=== PATIENT | male | born 1970 | race Caucasian/White ===

== ENCOUNTER 2018-04-28 17:16 | Emergency (ER) | payer BC ==
[2018-04-28] MEDS ORDERED: NS 0.9% 1000 ML* 2,000 ML IV ONE (17:55)
[2018-04-28] MEDS ORDERED: Metoclopramide IV* 5 MG/ML 2 ML VIAL IV SLOW PU ONE (17:56)
--- NOTE | 2018-04-28 18:22 | RAD ---
INDICATION: Syncope. COMPARISON: Comparison is made with prior chest x-ray study from August 26, 2016. TECHNIQUE: 2 portable films of the chest were obtained. FINDINGS: Cardiac and mediastinal contours appear to be within normal limits. The lungs are clear. No pleural effusion is seen. 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 IMPRESSION: NO EVIDENCE FOR ACUTE DISEASE.
[2018-04-28 18:32] LABS: ABS Basophils 0 10^3/ul (0-0.2); ABS Eosinophils 0.1 10^3/ul (0-0.6); ABS Monocytes 0.7 10^3/ul (0-0.8); ABS Neutrophils 6.6 10^3/ul (1.5-7.7); ABS Nucleated RBC 0 10^3/ul; Eosinophil % 1.5 % (0-6); Hematocrit 36 % (42-52); Hemoglobin 12.4 g/dl (14.0-18.0); Lymphocyte % 11.4 % (25-47); Mean Corpuscular HGB Conc 35 g/dl (31-36); Mean Corpuscular Hemoglobin 29 pg (27-31); Mean Corpuscular Volume 83 fL (80-94); Mean Platelet Volume 7.9 um3 (7.4-10.4); Nucleated Red Blood Cells % 0; Platelet Count 167 10^3/ul (150-450); Red Blood Count 4.32 10^6/ul (4.00-5.40); Red Cell Distribution Width 15 % (10.5-15); White Blood Count 8.4 10^3/ul (3.5-10.8)
--- NOTE | 2018-04-28 18:43 | ED ---
Syncope/Near Syncope - HPI Summary HPI Summary: This is michel Andujar documenting for attending Arron Coy MD. 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 reports that he has arthritis and woke up from a nap yesterday with R knee swelling. The patient was at infection control office to get his R knee drained during onset. Hx of syncope with needles, but "not like this". He reports no pain after the procedure. reports right before the episode, he had difficulty breathing, his eyes rolled back in his head and then he started snoring and was unresponsive for a few minutes. He then stopped breathing and the nurse said to begin CPR. The slapped and yelled the patient until he woke up. CPR was not done. reports he has had no previous syncopal episodes. He has had hx of anxiety attacks but nothing were like this episode and vasovagal episodes. The patient reports feeling dizzy and light-headed before the episode and said he havent felt good all day. Currently, he reports nausea, he cant get a deep breath, it feels funny when he breathes in, decreased appetite today secondary to nausea, and a migraine (not unusual) that has worsened since onset earlier today but is better currently. The patient rates the pain 0/10 in severity. Symptoms aggravated by nothing. Symptoms alleviated by nothing. Patient reports nausea currently, and profuse diaphoresis. Denies hx of CAD or blood clots. Denies FHx of blood clots. - History Of Current Complaint Chief Complaint: EDSyncope Time Seen by Provider: 04/28/18 17:31 Hx Obtained From: Patient Onset/Duration: Sudden Onset - FUGITIVE DETECTIVE, Lasting Minutes Context: Witnessed Activity At Onset: Other - immediately after a procedure Associated Head Trauma: No Aggravating Factor(s): Other - unknown, onset was during a procedure to drain his R knee Alleviating Factor(s): Spontaneous Resolution Associated Signs And Symptoms: Decreased Oral Intake - secondary to nausea today , Dizzy - before the episode, Lightheadedness - before the episode, Other - nausea currently; difficulties breathing currently: can't "get a deep breath", it "feels funny when he breathes in", migraine that is not unusual but has worsened since onset earlier today, but is better currently Related History: Similar Episode/Dx as - History of syncope wiht needles, but "not like this" - Allergies/Home Medications Allergies/Adverse Reactions: Allergies Allergy/AdvReac Type Severity Reaction Status Date / Time MS Acetaminophen Allergy Severe See Comment Verified 04/28/18 17:41 [From Tylenol] MS Aspirin [Aspirin] Allergy Severe Swelling Verified 04/28/18 17:41 Of Face,Lips,& Throat ibuprofen AdvReac GI Upset Verified 04/28/18 17:41 migraine medication Allergy Severe See Comment Uncoded 04/28/18 17:41 PMH/Surg Hx/FS Hx/Imm Hx Endocrine/Hematology History: Denies: Hx Diabetes, Hx Thyroid Disease Cardiovascular History: Reports: Hx Hypertension Denies: Hx Pacemaker/ICD Respiratory History: Denies: Hx Asthma, Hx Chronic Obstructive Pulmonary Disease (COPD) GI History: Denies: Hx Ulcer History: Denies: Hx Dialysis, Hx Renal Disease Sensory History: Denies: Hx Hearing Aid Neurological History: Reports: Hx CVA, Hx Migraine Psychiatric History: Reports: Hx Anxiety Denies: Hx Panic Disorder - Surgical History Surgery Procedure, Year, and Place: APPENDECTOMY AT AGE 5. RIGHT SHOULDER AT AGE 14 AND 40. RIGHT KNEE AT AGE 23. LEFT WRIST 2005. LEFT KNEE SCOPE 2010. LEFT ANKLE 2006. VASECTOMY 2006. 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 Infectious Disease History: No Infectious Disease History: Denies: Hx Hepatitis, Hx Human Immunodeficiency Virus (HIV), Traveled Outside the [place] in Last 30 Days - Family History Known Family History: Negative: Cardiac Disease, Hypertension, Diabetes - Social History Alcohol Use: None Substance Use Type: Reports: None Hx Tobacco Use: No Smoking Status (MU): Never Smoked Tobacco Review of Systems Positive: Skin Diaphoresis - profuse. Negative: Fever, Chills Negative: Erythema Negative: Sore Throat Negative: Chest Pain Positive: Other - difficulty breathing before the episode; currently he cant get a deep breath, it feels funny when he breathes in, . Negative: Shortness Of Breath, Cough Positive: Nausea - currently, Other - decreased appetite secondary to nausea. Negative: Abdominal Pain, Vomiting Negative: dysuria, hematuria Positive: Other - hx of arthritis, R knee swelling occurred yesterday that was supposed to be drained today. Negative: Myalgia, Edema Negative: Rash Neurological: Other - dizziness Positive: Headache - migraine had worsened since onset earlier today but is currently better, Syncope - unresponsive for "a few minutes" All Other Systems Reviewed And Are Negative: Yes Physical Exam - Summary Physical Exam Summary: Constitutional: Well-developed, Well-nourished, Alert. (-) Distressed Skin: Warm, diaphoretic HENT: Tired of hearing; Atraumatic Eyes: Conjunctiva normal Neck: Musculoskeletal ROM normal neck. (-) JVD, (-) Stridor, (-) Tracheal deviation Cardio: Rhythm regular, rate normal, Heart sounds normal; Intact distal pulses; The pedal pulses are 2+ and symmetric. Radial pulses are 2+ and symmetric. (-) Murmur Pulmonary/Chest wall: Effort normal. (-) Respiratory distress, (-) Wheezes, (-) Rales Abd: Soft, (-), epigastric tenderness, (-) Distension, (-) Guarding, (-) Rebound Musculoskeletal: (-) Edema Lymph: (-) Cervical adenopathy Neuro: Alert, Oriented x3 Psych: Mood and affect Normal Triage Information Reviewed: Yes Vital Signs On Initial Exam: Initial Vitals Pulse Pulse Ox 71 89 04/28/18 17:23 04/28/18 17:23 Vital Signs Reviewed: Yes Diagnostics - Vital Signs Vital Signs Temp Pulse Resp BP Pulse Ox 04/28/18 17:32 96.4 F 80 3 125/72 75 04/28/18 17:28 82 117/74 99 04/28/18 17:23 71 89 - Laboratory Lab Results: Lab Results 04/28/18 Range/Units 18:21 WBC 8.4 (3.5-10.8) 10^3/ul RBC 4.32 (4.00-5.40) 10^6/ul Hgb 12.4 L (14.0-18.0) g/dl Hct 36 L (42-52) % MCV 83 (80-94) fL MCH 29 (27-31) pg MCHC 35 (31-36) g/dl RDW 15 (10.5-15) % Plt Count 167 (150-450) 10^3/ul MPV 7.9 (7.4-10.4) um3 Neut % (Auto) 78.3 (38-83) % Lymph % (Auto) 11.4 L (25-47) % [place] % (Auto) 8.4 H (0-7) % Eos % (Auto) 1.5 (0-6) % Baso % (Auto) 0.4 (0-2) % Absolute Neuts (auto) 6.6 (1.5-7.7) 10^3/ul Absolute Lymphs (auto) 1.0 (1.0-4.8) 10^3/ul Absolute Monos (auto) 0.7 (0-0.8) 10^3/ul Absolute Eos (auto) 0.1 (0-0.6) 10^3/ul Absolute Basos (auto) 0 (0-0.2) 10^3/ul Absolute Nucleated RBC 0 10^3/ul Nucleated RBC % 0 ESR Pending Result Diagrams: 04/28/18 18:21 04/28/18 18:21 Lab Statement: Any lab studies that have been ordered have been reviewed, and results considered in the medical decision making process. - Radiology Chest X-Ray Radiology Interpretation Completed By: Radiologist - NO EVIDENCE FOR ACUTE DISEASE. ED physician has reviewed this radiology report - EKG No standard instances Cardiac Rate: NL - 73 bpm EKG Rhythm: Sinus Rhythm EKG Interpretation: no STEMI Re-Evaluation - Re-Evaluation First Eval Re-Evaluation Time: 18:57 Change: Improved - Right knee is mildly warm. 2 liters of fluid pending. He feels better. Plan for re-eval by Dr. Taylor Course/Dx Assessment/Plan: Hx of vasovagal syncope. Had a syncopal episode following a painful procedure. Labs are unremarkable. Has not eaten today. Is receiving IV fluids. Likely another vasovagal syncope. Patient is signed out to Dr. Taylor awaiting 2 liters of fluid pending. Plan for re-eval, likely discharge - Diagnoses Differential Diagnosis/HQI/PQRI: Positive: Vasovagal Episode Provider Diagnoses: Syncope Discharge - Sign-Out/Discharge Documenting (check all that apply): Sign-Out Patient Signing out patient TO: Ortiz Taylor - Discharge Plan Condition: Stable Disposition: HOME Patient Education Materials: Syncope (ED) Referrals: Jessee Reyna MD [Primary Care Provider] - (Follow up with your rn diabetes for your knee and your primary care physician in 1-3 days.) Additional Instructions: RETURN TO THE EMERGENCY DEPARTMENT FOR CHANGING OR WORSENING SYMPTOMS.
[2018-04-28 18:50] LABS: EGFR Non-African American 71.9 (>60)
[2018-04-28 20:09] LABS: Urine Appearance Clear; Urine Blood Negative (Negative); Urine Color Yellow; Urine Ketones Negative (Negative); Urine Protein Negative (Negative); Urine Specific Gravity 1.012 (1.010-1.030); Urine Urobilinogen Negative (Negative)
--- NOTE | 2018-04-28 21:42 | ED ---
Progress - Progress Note Progress Note: This patient was signed out from Dr. Coy to Dr. Taylor awaiting re-eval. Re-eval was done at 21:39. 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 Re-Evaluation - Re-Evaluation First Eval Re-Evaluation Time: 18:57 Change: Improved - Right knee is mildly warm. 2 liters of fluid pending. He feels better. Plan for re-eval by Dr. Taylor Course/Dx - Diagnoses Provider Diagnoses: Syncope Discharge - Sign-Out/Discharge Documenting (check all that apply): Patient Departure - Discharge Plan Condition: Stable Disposition: HOME Patient Education Materials: Syncope (ED) Referrals: Jessee Reyna MD [Primary Care Provider] - (Follow up with your sales engineer account manager for your knee and your primary care physician in 1-3 days.) Additional Instructions: RETURN TO THE EMERGENCY DEPARTMENT FOR CHANGING OR WORSENING SYMPTOMS.
[2018-04-28 21:54] VITALS: BP 125/78
== END 2018-04-28 22:02 | disposition home or self-care (01) ==
LOC: ED 17:16
DX: R55 Syncope and collapse (principal); Z86.73 Personal history of transient ischemic attack (TIA), and cerebral infarction without residual deficits; Z88.3 Allergy status to other anti-infective agents
CPT/HCPCS: 36415; 71045; 80053; 81003; 83605; 83735; 84443; 84484; 85025; 85652; 86141; 93005; 96374; 99283; J2765

== ENCOUNTER 2018-05-02 14:49 | Inpatient (IN) | payer BC ==
--- OUTSIDE RECORDS SUMMARY | 2018-05-02 15:00 | XMS REPORT ---
:1970 External Reference #:[id number] Author Organization [facility] Address [address] [place] [address] [place] [address] Phone [phone] Care Team Providers Name Role Phone Bradford Hsu MD Care Team Information Final Application Reviewer Unavailable Jessee Reyna MD Primary Care Physician Unavailable Payers Type Date Identification Numbers Payment Provider Subscriber Commercial Policy Number: [id number] [employer]ets Karon Lorenzana PayID: [id number] [address] [address] [place] [address] Problems Date Description Provider Status Onset: 04/29/2018 Cellulitis of right lower limb Cait Mcghee M.D. Active Onset: 04/29/2018 Localized, primary osteoarthritis Cait Mcghee M.D. Active Onset: 04/29/2018 Psoriasis with arthropathy Cait Mcghee M.D. 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 Doxycycline 04/29/ Active Capsules 100mg 45cap 1 by mouth Hyclate 2017 s twice a day, prakash Javed M.D. Methotrexate and Taltz Meloxicam 04/29/ Active Tablets 15mg 30tab 1 by mouth M25.561 Cait 2018 s every day Catie Mcghee Hydrocodone 04/29/ Active Tablets 5-300mg 60tab 1-2 tablets M25.561 Cait Bitartrate/Yuri 2018 s q12 hours by rahul Mcghee mouth as Catie needed pain Potassium 04/29/ Active Tablets ER 20Meq 6tabs 1 tab po bid E87.6 Cait Chloride ER 2018 x 3 days Taz, recheck Catie potassium wtih pcp in 1 week Taltz 03/25/ Active Solution 80mg/ml 8unit 160 mg (two 2017 Auto-Injec s 80 mg Tello, t injections) MGenesisDGenesis at week 0, followed by 80 mg at weeks 2, 4, 6, 8, 10, and 12, then 80 mg every 4 weeks. Methotrexate 03/04/ Active Tablets 2.5mg 30tab take 5 R70.0 2017 s capsules/tabl Tello, ets by mouth M.DGenesis once weekly Folic Acid 03/04/ Active Tablets 1mg 90tab take one R70.0 2017 s capsule/table Tello, t daily by MHumberto mouth Celebrex 12/17/ Active Capsules 200mg 90cap take one M06.4 2016 s capsule/table Tello, t daily by Catie mouth as needed for pain Nitro-bid 12/17/ Active Ointment 2% 30gm apply small I73.00 2016 amount to tatyana Javed of Catie digits as needed for attack of raynaud's D3-1000 12/17/ Active Tablets 1000Unit 90tab take one M06.4 2016 s capsule/table Tello, t daily by MHumberto mouth Venlafaxine / Active Caps ER 150mg 1 by mouth Unknown HCL ER 0000 24HR every day Pantoprazole / Active Tablets DR 40mg 1 by mouth Unknown Sodium 0000 every day Losartan / Active Tablets 100mg 1 by mouth Unknown Potassium 0000 every day Amlodipine 00/ Active Tablets 5mg 1 by mouth Unknown Besylate 0000 every day Trazodone HCL / Active Tablets 50mg 1 tablet at Unknown 0000 bedtime as needed Alprazolam / Active Tablets 0.5mg Unknown 0000 Rizatriptan / Active Tablets 10mg prn Unknown Benzoate 0000 Dispers Aspir-81 / Active Tablets DR 81mg 1 by mouth Unknown 0000 every day Cephalexin 04/29/ Hx Tablets 500mg 30tab 1 by mouth L03.115 Cait 2018 - s four times a Taz, M.D. 2017 Clopidogrel / Hx Tablets 75mg 1 by mouth Unknown Bisulfate 0000 - every day 2017 Immunizations CPT Code Status Date Vaccine Reaction Lot # 47069 Given 03/25/2018 Pneumococcal Conjugate no immediate reaction [id number] Vaccine 13 Valent For noted Intramuscular Use Vital Signs Date Vital Result Comment 05/01/2018 Height 70 inches 5'10" Heart Rate 87 /min BP Systolic 130 mmHg BP Diastolic 86 mmHg Respiratory Rate 20 /min Body Temperature 98.2 F Pain Level 3 04/29/2018 Height 70 inches 5'10" Weight 235.00 lb Heart Rate 88 /min BP Systolic 126 mmHg BP Diastolic 84 mmHg BMI (Body Mass Index) 33.7 kg/m2 04/28/2018 Height 70 inches 5'10" Heart Rate 97 /min BP Systolic Sitting 124 mmHg BP Diastolic Sitting 73 mmHg Respiratory Rate 14 /min Body Temperature 99.0 F Pain Level 8 03/25/2018 Height 70 inches 5'10" Weight 239.12 lb Heart Rate 73 /min BP Systolic Sitting 130 mmHg BP Diastolic Sitting 82 mmHg Respiratory Rate 14 /min Pain Level 5 BMI (Body Mass Index) 34.3 kg/m2 03/04/2018 Height 70 inches 5'10" Weight 239.00 lb Heart Rate 84 /min BP Systolic Sitting 120 mmHg BP Diastolic Sitting 80 mmHg Respiratory Rate 14 /min Body Temperature 97.6 F Pain Level 5 BMI (Body Mass Index) 34.3 kg/m2 02/20/2017 Height 70 inches 5'10" Weight 237.25 lb Heart Rate 80 /min BP Systolic Sitting 118 mmHg BP Diastolic Sitting 78 mmHg Respiratory Rate 14 /min Pain Level 3 BMI (Body Mass Index) 34.0 kg/m2 12/17/2016 Height 70 inches 5'10" Weight 238.00 lb Heart Rate 89 /min BP Systolic Sitting 101 mmHg BP Diastolic Sitting 73 mmHg Respiratory Rate 14 /min Body Temperature 97.1 F Pain Level 4 BMI (Body Mass Index) 34.1 kg/m2 11/19/2016 Height 70 inches 5'10" Weight 242.00 lb Heart Rate 68 /min BP Systolic Sitting 122 mmHg BP Diastolic Sitting 80 mmHg Respiratory Rate 14 /min Body Temperature 97.4 F Pain Level 3 BMI (Body Mass Index) 34.7 kg/m2 Results Test Date Test Result H/L Range Note Laboratory test finding 04/29/2018 Lyme Disease Serology <pending> Uric Acid 5.9 mg/dL 4.4-7.6 Quantiferon Gold TB 03/25/2018 QuantiFERON-Tb Gold Plus Negative Negative 1 TB1 Ag minus Nil Result 0 IU/mL TB2 Ag minus Nil Result 0 IU/mL TB Mitogen minus Nil Result 9.05 IU/mL TB Nil Result 0.03 IU/mL 2 Laboratory test finding 03/25/2018 C Reactive Protein 2.93 mg/L <8.01 3 Comp Metabolic Panel 03/25/2018 Sodium 138 mmol/L 135-145 Potassium 4.2 mmol/L 3.5-5.0 Chloride 104 mmol/L 101-111 Co2 Carbon Dioxide 29 mmol/L 22-32 Anion Gap 5 mmol/L 2-11 Glucose 103 mg/dL High 70-100 Blood Urea Nitrogen 21 mg/dL 6-24 Creatinine 1.11 mg/dL 0.67-1.17 BUN/Creatinine Ratio 18.9 8-20 Calcium 9.2 mg/dL 8.6-10.3 Total Protein 6.7 g/dL 6.4-8.9 Albumin 4.3 g/dL 3.2-5.2 Globulin 2.4 g/dL 2-4 Albumin/Globulin Ratio 1.8 1-3 Total Bilirubin 0.40 mg/dL 0.2-1.0 Alkaline Phosphatase 76 U/L 34-104 Alt 16 U/L 7-52 Ast 15 U/L 13-39 Egfr Non- 70.4 >60 Egfr 85.2 >60 4 Laboratory test finding 03/25/2018 Erythrocyte Sed Rate 7 mm/Hr 0-14 CBC Auto Diff 03/25/2018 White Blood Count 7.0 10^3/uL 3.5-10.8 Red Blood Count 4.95 10^6/uL 4.00-5.40 Hemoglobin 14.4 g/dL 14.0-18.0 Hematocrit 41 % Low 42-52 Mean Corpuscular Volume 83 fL 80-94 Mean Corpuscular Hemoglobin 29 pg 27-31 Mean Corpuscular HGB Conc 35 g/dL 31-36 Red Cell Distribution Width 14 % 10.5-15 Platelet Count 212 10^3/uL 150-450 Mean Platelet Volume 7.5 um3 7.4-10.4 Abs Neutrophils 4.3 10^3/uL 1.5-7.7 Abs Lymphocytes 1.7 10^3/uL 1.0-4.8 Abs Monocytes 0.6 10^3/uL 0-0.8 Abs Eosinophils 0.2 10^3/uL 0-0.6 Abs Basophils 0.1 10^3/uL 0-0.2 Abs Nucleated RBC 0 10^3/uL Granulocyte % 62.4 % 38-83 Lymphocyte % 25.0 % 25-47 Monocyte % 8.3 % High 0-7 Eosinophil % 3.3 % 0-6 Basophil % 1.0 % 0-2 Nucleated Red Blood Cells % 0 Laboratory test finding 03/04/2018 Erythrocyte Sed Rate 10 mm/Hr 0-14 5 C Reactive Protein 6.40 mg/L High < 5.00 6 Vitamin D, 1,25 Dihydroxy 52 pg/mL 18-64 7 Comp Metabolic Panel 03/04/2018 Sodium 138 mmol/L Low 139-145 Potassium 3.9 mmol/L 3.5-5.0 Chloride 104 mmol/L 101-111 Co2 Carbon Dioxide 27 mmol/L 22-32 Anion Gap 7 mmol/L 2-11 Glucose 130 mg/dL High 70-100 Blood Urea Nitrogen 22 mg/dL 6-24 Creatinine 1.01 mg/dL 0.67-1.17 BUN/Creatinine Ratio 21.8 High 8-20 Calcium 9.2 mg/dL 8.6-10.3 Total Protein 6.3 g/dL Low 6.4-8.9 Albumin 4.0 g/dL 3.2-5.2 Globulin 2.3 g/dL 2-4 Albumin/Globulin Ratio 1.7 1-3 Total Bilirubin 0.40 mg/dL 0.2-1.0 Alkaline Phosphatase 96 U/L 34-104 Alt 17 U/L 7-52 Ast 18 U/L 13-39 Egfr Non- 78.5 >60 Egfr 101.0 >60 8 CBC Auto Diff 03/04/2018 White Blood Count 5.6 10^3/uL 3.5-10.8 Red Blood Count 5.00 10^6/uL 4.0-5.4 Hemoglobin 13.9 g/dL Low 14.0-18.0 Hematocrit 41 % Low 42-52 Mean Corpuscular Volume 83 fL 80-94 Mean Corpuscular Hemoglobin 28 pg 27-31 Mean Corpuscular HGB Conc 34 g/dL 31-36 Red Cell Distribution Width 14 % 10.5-15 Platelet Count 225 10^3/uL 150-450 Mean Platelet Volume 8.2 um3 7.4-10.4 Abs Neutrophils 3.6 10^3/uL 1.5-7.7 Abs Lymphocytes 1.4 10^3/uL 1.0-4.8 Abs Monocytes 0.3 10^3/uL 0-0.8 Abs Eosinophils 0.2 10^3/uL 0-0.6 Abs Basophils 0 10^3/uL 0-0.2 Abs Nucleated RBC 0 10^3/uL Granulocyte % 64.5 % 38-83 Lymphocyte % 25.4 % 25-47 Monocyte % 5.8 % 0-7 Eosinophil % 3.7 % 0-6 Basophil % 0.6 % 0-2 Nucleated Red Blood Cells % 0.1 Comp Metabolic Panel 03/12/2017 Sodium 136 mmol/L 133-145 Potassium 4.7 mmol/L 3.5-5.0 Chloride 101 mmol/L 101-111 Co2 Carbon Dioxide 29 mmol/L 22-32 Anion Gap 6 mmol/L 2-11 Glucose 80 mg/dL 70-100 Blood Urea Nitrogen 17 mg/dL 6-24 Creatinine 1.15 mg/dL 0.67-1.17 BUN/Creatinine Ratio 14.8 8-20 Calcium 9.9 mg/dL 8.6-10.3 Total Protein 7.0 g/dL 6.4-8.9 Albumin 4.5 g/dL 3.2-5.2 Globulin 2.5 g/dL 2-4 Albumin/Globulin Ratio 1.8 1-3 Total Bilirubin 0.60 mg/dL 0.2-1.0 Alkaline Phosphatase 80 U/L 34-104 Alt 24 U/L 7-52 Ast 20 U/L 13-39 Egfr Non- 67.9 >60 Egfr 87.3 >60 9 Laboratory test finding 03/12/2017 Erythrocyte Sed Rate 12 mm/Hr 0-14 10 C Reactive Protein 3.36 mg/L < 5.00 11 Vitamin B12 And Folate Serum 03/12/2017 Vitamin B12 533 pg/mL 180-914 12 Folic Acid (Folate) 7.97 ng/mL >3.99 13 Iron & Iron Binding Capacity 03/12/2017 Iron 97 g/dL 50-212 Unsaturated Iron Binding 292 g/dL Total Iron Binding Capacity 389 g/dL 250-450 % Iron Saturation 25 % 15-55 CBC Auto Diff 03/12/2017 White Blood Count 5.0 10^3/uL 3.5-10.8 Red Blood Count 5.34 10^6/uL 4.0-5.4 Hemoglobin 14.1 g/dL 14.0-18.0 Hematocrit 43 % 42-52 Mean Corpuscular Volume 81 fL 80-94 Mean Corpuscular Hemoglobin 26 pg Low 27-31 Mean Corpuscular HGB Conc 33 g/dL 31-36 Red Cell Distribution Width 15 % 10.5-15 Platelet Count 213 10^3/uL 150-450 Mean Platelet Volume 8 um3 7.4-10.4 Abs Neutrophils 3.1 10^3/uL 1.5-7.7 Abs Lymphocytes 1.4 10^3/uL 1.0-4.8 Abs Monocytes 0.4 10^3/uL 0-0.8 Abs Eosinophils 0.1 10^3/uL 0-0.6 Abs Basophils 0 10^3/uL 0-0.2 Abs Nucleated RBC 0.01 10^3/uL Granulocyte % 61.5 % 38-83 Lymphocyte % 27.2 % 25-47 Monocyte % 8.9 % 1-9 Eosinophil % 1.8 % 0-6 Basophil % 0.6 % 0-2 Nucleated Red Blood Cells % 0.1 Connective Tissue Panel 11/19/2016 Anti-Nuclear Antibody 0.5 U 14 Cyclic Citrullinated Peptide <15.6 U 15 Interpretation See Comment 16 Laboratory test finding 11/19/2016 Rheumatoid Factor <15 IU/mL <15 17 Erythrocyte Sed Rate 23 mm/Hr High 0-14 18 C Reactive Protein 14.86 mg/L High < 5.00 19 Hla B27 11/19/2016 Hla B27 Negative 20 Hla B27 Interp See Comment 21 Laboratory test finding 11/19/2016 Lyme Disease Serology Negative Negative 22 Anca AB Ser If 11/19/2016 C-Anca Negative Negative P-Anca Negative Negative 23 Laboratory test finding 11/19/2016 Creatine Kinase(CK) 132 U/L 10-223 24 Comp Metabolic Panel 11/19/2016 Sodium 139 mmol/L 133-145 Potassium 4.3 mmol/L 3.5-5.0 Chloride 103 mmol/L 101-111 Co2 Carbon Dioxide 30 mmol/L 22-32 Anion Gap 6 mmol/L 2-11 Glucose 99 mg/dL 70-100 Blood Urea Nitrogen 21 mg/dL 6-24 Creatinine 1.08 mg/dL 0.67-1.17 BUN/Creatinine Ratio 19.4 8-20 Calcium 9.4 mg/dL 8.6-10.3 Total Protein 7.0 g/dL 6.4-8.9 Albumin 4.2 g/dL 3.2-5.2 Globulin 2.8 g/dL 2-4 Albumin/Globulin Ratio 1.5 1-3 Total Bilirubin 0.40 mg/dL 0.2-1.0 Alkaline Phosphatase 84 U/L 34-104 Alt 18 U/L 7-52 Ast 14 U/L 13-39 Egfr Non- 73.3 >60 Egfr 94.3 >60 25 CBC Auto Diff 11/19/2016 White Blood Count 5.5 10^3/uL 3.5-10.8 Red Blood Count 5.12 10^6/uL 4.0-5.4 Hemoglobin 13.4 g/dL Low 14.0-18.0 Hematocrit 41 % Low 42-52 Mean Corpuscular Volume 79 fL Low 80-94 Mean Corpuscular Hemoglobin 26 pg Low 27-31 Mean Corpuscular HGB Conc 33 g/dL 31-36 Red Cell Distribution Width 15 % 10.5-15 Platelet Count 226 10^3/uL 150-450 Mean Platelet Volume 8 um3 7.4-10.4 Abs Neutrophils 4.0 10^3/uL 1.5-7.7 Abs Lymphocytes 1.1 10^3/uL 1.0-4.8 Abs Monocytes 0.3 10^3/uL 0-0.8 Abs Eosinophils 0.1 10^3/uL 0-0.6 Abs Basophils 0 10^3/uL 0-0.2 Abs Nucleated RBC 0 10^3/uL Granulocyte % 72.7 % 38-83 Lymphocyte % 19.8 % Low 25-47 Monocyte % 5.3 % 1-9 Eosinophil % 1.8 % 0-6 Basophil % 0.4 % 0-2 Nucleated Red Blood Cells % 0.1 Laboratory test finding 11/19/2016 TSH (Thyroid Stim 1.00 mcIU/mL 0.34- 5.60 26 Horm) Angiotensin Converting Enzyme 27 U/L 8 - 53 27 Vitamin B12 And Folate Serum 11/19/2016 Vitamin B12 531 pg/mL 180-914 28 Folic Acid (Folate) 5.25 ng/mL >3.99 29 Vitamin D 1,25 And Vitamin 11/19/2016 Vitamin D Total 25(Oh) 29.6 ng/mL Low 30-50 30 D,2 Vitamin D, 1,25 Dihydroxy 56 pg/mL 18-64 31 1 No interferon-gamma response to M. tuberculosis antigens was detected. Infection with M. tuberculosis is unlikely. A single negative result does not exclude infection with M. tuberculosis. In patients at high risk for M.tuberculosis infection, a second test should be considered in accordance with the 2017 ATS/IDSA/CDC Clinical Practice Guidelines for Diagnosis of Tuberculosis in Adults and Children [Lewinsohn DM et. al. Clin. Infect. Dis. 2017;64(2):111-115]. 2 Test Performed by: [facility] [address] [place] [id number] 3 Please check this week 4 Because ethnic data is not always readily available, this report includes an eGFR for both -Americans and non- Americans. The National Kidney Disease Education Program (NKDEP) does not endorse the use of the MDRD equation for patients that are not between the ages of 18 and 70, are , have extremes of body size, muscle mass, or nutritional status, or are non- or non-. According to the National Kidney Foundation, irrespective of diagnosis, the stage of the disease is based on the level of kidney function: Stage Description GFR(mL/min/1.73 m(2)) 1 Kidney damage with normal or decreased GFR 90 2 Kidney damage with mild decrease in GFR 60-89 3 Moderate decrease in GFR 30-59 4 Severe decrease in GFR 15-29 5 Kidney failure <15 (or dialysis) 5 Please check today 6 Acute inflammation: >10.00 7 ADDITIONAL INFORMATION This test was developed and its performance characteristics determined by [facility] in a manner consistent with CLIA requirements. This test has not been cleared or approved by the U.S. Food and Drug Administration. Test Performed by: [facility] [address] [place] [address] 8 Because ethnic data is not always readily available, this report includes an eGFR for both -Americans and non- Americans. The National Kidney Disease Education Program (NKDEP) does not endorse the use of the MDRD equation for patients that are not between the ages of 18 and 70, are , have extremes of body size, muscle mass, or nutritional status, or are non- or non-. According to the National Kidney Foundation, irrespective of diagnosis, the stage of the disease is based on the level of kidney function: Stage Description GFR(mL/min/1.73 m(2)) 1 Kidney damage with normal or decreased GFR 90 2 Kidney damage with mild decrease in GFR 60-89 3 Moderate decrease in GFR 30-59 4 Severe decrease in GFR 15-29 5 Kidney failure <15 (or dialysis) 9 Because ethnic data is not always readily available, this report includes an eGFR for both -Americans and non- Americans. The National Kidney Disease Education Program (NKDEP) does not endorse the use of the MDRD equation for patients that are not between the ages of 18 and 70, are , have extremes of body size, muscle mass, or nutritional status, or are non- or non-. According to the National Kidney Foundation, irrespective of diagnosis, the stage of the disease is based on the level of kidney function: Stage Description GFR(mL/min/1.73 m(2)) 1 Kidney damage with normal or decreased GFR 90 2 Kidney damage with mild decrease in GFR 60-89 3 Moderate decrease in GFR 30-59 4 Severe decrease in GFR 15-29 5 Kidney failure <15 (or dialysis) 10 Please check in 1 or 2 weeks or sooner if needed 11 Acute inflammation: >10.00 12 Normal Range 180 to 914 Indeterminate Range 145 to 180 Deficient Range <145 13 Please check in 1 or 2 weeks or sooner if needed 14 REFERENCE VALUE <=1.0 (Negative) 15 REFERENCE VALUE <20.0 (Negative) 16 Tests for antibodies to dsDNA and RHIANNON antigens are not performed automatically unless the SAEED result is > or= 3.0 U. Studies performed at [facility] indicate that positive SAEED results <3.0 U are rarely accompanied by positive second order tests. Test Performed by: [place] [address] [place]: Alfredito Gonzales II, M.D., Ph.D. 17 Test Performed by: [place] [address] [place]: Alfredito Gonzales II, M.D., Ph.D. 18 Please check today 19 Acute inflammation: >10.00 20 REFERENCE VALUE Not Applicable 21 RESULT: HLA-B27 antigen was not detected. ADDITIONAL INFORMATION Method: Flow Cytometry Performing Laboratory CLIA# [id number] Test Performed by: [place] [address] [place]: Alfredito Gonzales II, M.D., Ph.D. 22 Serologic response to B. burgdorferi infection is not detected, but cannot rule out early infection during which low or undetectable antibody levels to B. burgdorferi may be present. If clinically indicated, a new serum specimen should be submitted in 7-14 days. Test Performed by: [facility] [address] [place] [address] Ste[place]man: Alfredito Gonzales II, M.D., Ph.D. 23 Negative for cANCA and pANCA patterns by immunofluorescence. ADDITIONAL INFORMATION This test was developed and its performance characteristics determined by [facility] in a manner consistent with CLIA requirements. This test has not been cleared or approved by the U.S. Food and Drug Administration. Test Performed by: [facility] [place] [address] Steersman: Alfredito Gonzales II, M.D., Ph.D. 24 Please check today 25 Because ethnic data is not always readily available, this report includes an eGFR for both -Americans and non- Americans. The National Kidney Disease Education Program (NKDEP) does not endorse the use of the MDRD equation for patients that are not between the ages of 18 and 70, are , have extremes of body size, muscle mass, or nutritional status, or are non- or non-. According to the National Kidney Foundation, irrespective of diagnosis, the stage of the disease is based on the level of kidney function: Stage Description GFR(mL/min/1.73 m(2)) 1 Kidney damage with normal or decreased GFR 90 2 Kidney damage with mild decrease in GFR 60-89 3 Moderate decrease in GFR 30-59 4 Severe decrease in GFR 15-29 5 Kidney failure <15 (or dialysis) 26 Please check today 27 Test Performed by: [facility] [place] [address] [place]: Alfredito Gonzales II, M.D., Ph.D. 28 Normal Range 180 to 914 Indeterminate Range 145 to 180 Deficient Range <145 29 Please check today 30 Please check today 31 ADDITIONAL INFORMATION This test was developed and its performance characteristics determined by [facility] in a manner consistent with CLIA requirements. This test has not been cleared or approved by the U.S. Food and Drug Administration. Test Performed by: [facility] [place] [address] [place]: Alfredito Gonzales II, M.D., Ph.D. Procedures Description No Information Encounters Type Date Location Provider CPT E/M Dx Office Visit 03/25/2018 [facility] Choco Javed M.D. 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 Z79.899 R70.0 D64.9 Z23 Office Visit 03/04/2018 11:00a [facility] Choco Javed 59413 L40.50 Of Angela Zheng.Elsa Z79.1 Z79.899 I73.00 R70.0 Office Visit 02/20/2017 9:20a [facility] Of Choco Javed, 17453 M15.0 Angela Zheng.Elsa Z79.1 I73.00 M79.1 D64.9 R70.0 Office Visit 12/17/2016 9:20a [facility] Of Choco Javed, 93602 M06.4 Angela Haddad R20.8 M79.1 M54.5 I73.00 Z79.1 Office Visit 11/19/2016 8:00a [facility] Of Choco Javed, 10159 M06.4 Angela Haddad R20.8 M79.1 M54.5 M25.559 I73.00 Z79.1 Plan of Care Future Appointment(s):05/04/2018 3:00 pm - Cait Mcghee M.D. at [facility]06/17/2018 10:20 am - Choco Javed M.D. at [facility]05/01/2018 - Cait Mcghee M.D.M25.461 Effusion, right kneeNew Medication:Clindamycin HCL 300 mgFollow up:Follow up: friday 05/04L03.115 Cellulitis of right lower limbE87.6 KqrlgtlqrazB53.11 Unilateral primary osteoarthritis, right kneeL40.50 Arthropathic psoriasis, unspecified
--- OUTSIDE RECORDS SUMMARY | 2018-05-02 15:00 | XMS REPORT ---
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 Active Onset: 04/29/2018 Localized, primary osteoarthritis Cait Mcghee M.D. Active Onset: 04/29/2018 Psoriasis with arthropathy Cait Mcghee M.D. 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 Methotrexate and Taltz Meloxicam 04/29/ Active Tablets 15mg 30tab 1 by mouth M25.561 Cait 2018 s every day Catie Mcghee Hydrocodone 04/29/ Active Tablets 5-300mg 60tab 1-2 tablets M25.561 Cait Bitartrate/Yuri 2018 s q12 hours by sheng Mcgheeinophen mouth as M.Elsa needed pain Cephalexin 04/29/ Active Tablets 500mg 30tab 1 by mouth L03.115 Cait 2018 s four times a janet Mcghee M.D. Potassium 04/29/ Active Tablets ER 20Meq 6tabs 1 tab po bid E87.6 Cait Chloride ER 2018 x 3 days Taz, recheck Catie potassium wtih pcp in 1 week Taltz 03/25/ Active Solution 80mg/ml 8unit 160 mg (two 2017 Auto-Injec s 80 mg Tello, t injections) MHumberto at week 0, followed by 80 mg [...] 2016 s capsule/table Tello, t daily by M.Elsa mouth as needed for pain Nitro-bid 12/17/ Active Ointment 2% 30gm apply small I73.00 2016 amount to tatyana Javed of Catie digits as needed for attack of raynaud's D3-1000 12/17/ Active Tablets 1000Unit 90tab take one M06.4 2016 s capsule/table Tello, t daily by M.Elsa mouth Venlafaxine / Active Caps ER 150mg 1 by mouth Unknown HCL ER 0000 24HR every day Pantoprazole 00// Active Tablets DR 40mg 1 by mouth Unknown Sodium 0000 every day Losartan 00/ Active Tablets 100mg 1 by mouth Unknown [...] 1 by mouth Unknown 0000 every day Clopidogrel / Hx Tablets 75mg 1 by mouth Unknown Bisulfate 0000 - every day 2017 Immunizations CPT Code Status Date Vaccine Reaction Lot # [id number] Given 03/25/2018 Pneumococcal Conjugate no immediate reaction [id number] Vaccine 13 Valent For noted Intramuscular Use Vital Signs Date Vital Result Comment 04/29/2018 Height 70 inches 5'10" Weight 235.00 [...] Test Date Test Result H/L Range Note Quantiferon Gold TB 03/25/2018 QuantiFERON-Tb Gold Plus [...] Diagnosis of Tuberculosis in Adults and Children [Lewinsshahidan DM et. al. Clin. Infect. Dis. 2017;64(2):111-115]. 2 Test Performed by: [facility] [employer] [facility] [place] [address] 3 Please check this week 4 Because [...] developed and its performance characteristics determined by [facility] in a manner consistent with CLIA requirements. This test has not been cleared or approved by the U.S. Food and Drug Administration. Test Performed by: [facility] [employer] [facility] [employer] [place] [address] 8 Because ethnic data is not always [...] > or= 3.0 U. Studies performed at [facility] indicate that positive SAEED results <3.0 U are rarely accompanied by positive second order tests. Test Performed by: [facility] [place] [address] Heel Compressor: Alfredito Gonzales II, M.D., Ph.D. 17 Test Performed by: [facility] [place] [address] Heel Compressor: Alfredito Gonzales II, M.D., Ph.D. 18 Please check today 19 Acute inflammation: >10.00 20 REFERENCE VALUE Not Applicable 21 RESULT: HLA-B27 antigen was not detected. ADDITIONAL INFORMATION Method: Flow Cytometry Performing Laboratory CLIA# [id number] Test Performed by: [place] [address] Heel Compressor: Alfredito Gonzales II, M.D., Ph.D. 22 Serologic response to B. burgdorferi infection is not detected, but cannot rule out early infection during which low or undetectable antibody levels to B. burgdorferi may be present. If clinically indicated, a new serum specimen should be submitted in 7-14 days. Test Performed by: [facility] [place] [address] Heel Compressor: Alfredito Gonzales II, M.D., Ph.D. 23 Negative for cANCA and pANCA patterns by immunofluorescence. ADDITIONAL INFORMATION This test was developed and its performance characteristics determined by [facility] in a manner consistent with CLIA requirements. This test has not been cleared or approved by the U.S. Food and Drug Administration. Test Performed by: [place] [address] Heel Compressor: Alfredito Gonzales II, M.D., Ph.D. 24 Please [...] Please check today 27 Test Performed by: [place] [address] Heel Compressor: Alfredito Gonzales II, M.D., Ph.D. 28 Normal Range 180 to 914 Indeterminate Range 145 to 180 Deficient Range <145 29 Please check today 30 Please check today 31 ADDITIONAL INFORMATION This test was developed and its performance characteristics determined by [facility] in a manner consistent with CLIA requirements. This test has not been cleared or approved by the U.S. Food and Drug Administration. Test Performed by: [facility] - [address] [address] Heel Compressor: Alfredito Gonzales II, M.D., Ph.D. Procedures Description No Information Encounters Type Date Location Provider CPT E/M Dx Office Visit 04/29/2018 Orthopedic Services Cait Mcghee M.D. 14148 M25.461 2:00p [facility] R70.0 L40.50 M17.11 M25.561 L03.115 E87.6 Office Visit 03/25/2018 4:00p Rheumatology Services Choco Javed, 15596 L40.50 Of [facility] Catie Z79.899 R70.0 D64.9 Z23 Office Visit 03/04/2018 11:00a Rheumatology Services Choco Javed, 75674 L40.50 Of Angela Haddad Z79.1 Z79.899 I73.00 R70.0 Office Visit 02/20/2017 9:20a [facility] Of Choco Reevesr, 19877 M15.0 Angela Zheng.Elsa Z79.1 I73.00 M79.1 D64.9 R70.0 Office Visit 12/17/2016 9:20a [facility] Of Choco Javed, 56328 M06.4 Angela Zheng.Elsa R20.8 M79.1 M54.5 I73.00 Z79.1 Office Visit 11/19/2016 8:00a [facility] Of Choco Reevesr, 33698 M06.4 Angela Zheng.Elsa R20.8 M79.1 M54.5 M25.559 I73.00 Z79.1 Plan of Care Future Appointment(s):05/01/2018 3:30 pm - Cait Mcghee M.D. at [facility]06/17/2018 10:20 am - Choco Javed M.D. at [facility]04/29/2018 - Cait Mcghee M.D.M25.461 Effusion, right kneeNew Labs:Lyme Disease SerologyUric AcidTick-Borne Panel PCR EsvnqL38.0 Elevated erythrocyte sedimentation rateNew Labs:Lyme Disease SiugqwutI93.50 Arthropathic psoriasis, nbklvodepxyT05.11 Unilateral primary osteoarthritis, right kneeFollow up:Follow up: 05/01 last kmkmcgmzjofR46.561 Pain in right kneeNew Medication:Meloxicam 15 mgHydrocodone Bitartrate/Acetaminophen 5-300 mgNew Xrays :Knee 3 Views RTL03.115 Cellulitis of right lower limbNew Medication:Cephalexin 500 mgE87.6 HypokalemiaNew Medication:Potassium Chloride ER 20 Meq
--- NOTE | 2018-05-02 15:16 | ED ---
Lower Extremity - HPI Summary HPI Summary: This is michel Montezsain documenting for attending Dr. South Hollins MD. A 47 y/o male presents to ED c/o right knee swelling and pain reaching 5/10 in severity. Currently, the patient has no other symptoms or medical conditions besides the knee swelling and pain. According to the patient, all of a sudden he woke with swelling and knee pain on 04/27/2018, after work this earlier in the morning. He noted that since then the pain and swelling has been getting worse. 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 Mcghee, who called Dr. Thomas earlier. Dr. Mcghee thinks the patient has cellulitis (initially thought to be Lyme disease). He stated that he has been on three different kinds of antibiotics (Keflex first, currently on Clindamycin ) over the past week, however, none of them alleviated his pain/swelling. Additionally he noted that he did have during onset of pain/swelling such as fever, chills, nausea and headaches, however it has been resolved since meds. It was noted that the patient was here on Friday where Dr. Javed tried to aspirate him in which he had syncope. He stopped breathing and EMS was called and brought to [facility] ED for six hours. PMHx of psoriasis and HBP. Major surgeries include torn mesenteric artery (no surgery), 7 surgeries on right shoulder, 2 on right knee (ACL and MCL), left ankle surgery, appendectomy, left wrist surgery, left knee surgery, vasectomy. - History of Current Complaint Chief Complaint: EDExtremityLower Stated Complaint: RT KNEE SWELLING Time Seen by Provider: 05/02/18 15:06 Hx Obtained From: Patient Mechanism Of Injury: Unknown Onset of Pain: Immediate Onset/Duration: Days - 6 days Severity Initially: Moderate Severity Currently: Moderate Pain Intensity: 5 Pain Scale Used: 0-10 Numeric Timing: Constant Location: Is Discrete @ - Right knee Associated Signs And Symptoms: Positive: Swelling, Redness, Knee Pain Aggravating Factor(s): Nothing Alleviating Factor(s): Nothing Able to Bear Weight: Yes - Allergies/Home Medications Allergies/Adverse Reactions: Allergies Allergy/AdvReac Type Severity Reaction Status Date / Time acetaminophen [From Tylenol] Allergy GI Upset Verified 05/02/18 15:15 aspirin Allergy Swelling Verified 05/02/18 15:15 Of Face,Lips,& Throat ibuprofen AdvReac GI Upset Verified 04/28/18 17:41 migraine medication Allergy Severe See Comment Uncoded 04/28/18 17:41 Home Medications: Home Medications Amlodipine Besylate 5 mg PO DAILY 05/02/18 [History Confirmed 05/02/18] Clindamycin Cap 300 mg Cap(NF) 300 mg PO QID 05/02/18 [History Confirmed ] Doxy 100 100 mg PO BID 05/02/18 [History Confirmed 05/02/18] Folic Acid 1 mg PO DAILY 05/02/18 [History Confirmed 05/02/18] Klor Con ER TAB 10 MEQ* 20 meq PO BID 05/02/18 [History Confirmed 05/02/18] Meloxicam 15 mg PO DAILY 05/02/18 [History Confirmed 05/02/18] Trazodone HCl 50 mg PO PRN 05/02/18 [History] PMH/Surg Hx/FS Hx/Imm Hx Endocrine/Hematology History: Denies: Hx Diabetes, Hx Thyroid Disease Cardiovascular History: Reports: Hx Hypertension Denies: Hx Pacemaker/ICD Respiratory History: Denies: Hx Asthma, Hx Chronic Obstructive Pulmonary Disease (COPD) GI History: Denies: Hx Ulcer History: Denies: Hx Dialysis, Hx Renal Disease Sensory History: Denies: Hx Hearing Aid Neurological History: Reports: Hx CVA, Hx Migraine Psychiatric History: Reports: Hx Anxiety Denies: Hx Panic Disorder - Surgical History Surgery Procedure, Year, and Place: APPENDECTOMY AT AGE 5. RIGHT SHOULDER AT AGE 14 AND 40. RIGHT KNEE AT AGE 23. LEFT WRIST 2004. LEFT KNEE SCOPE 2010. LEFT ANKLE 2006. VASECTOMY 2005. 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 Infectious Disease History: No Infectious Disease History: Denies: Hx Hepatitis, Hx Human Immunodeficiency Virus (HIV), Traveled Outside the [place] in Last 30 Days - Family History Known Family History: Negative: Cardiac Disease, Hypertension, Diabetes - Social History Alcohol Use: None Substance Use Type: Reports: None Hx Tobacco Use: No Smoking Status (MU): Never Smoked Tobacco Review of Systems Positive: Fever - RESOLVED, Chills - RESOLVED Positive: Nausea - RESOLVED Positive: Edema - Right knee, Other - POSITIVE: Right knee pain Positive: Headache - RESOLVED All Other Systems Reviewed And Are Negative: Yes Physical Exam - Summary Physical Exam Summary: VITAL SIGNS: Reviewed. GENERAL: Patient is a well-developed and nourished male who is lying comfortable in the stretcher. Patient is not in any acute respiratory distress. HEAD AND FACE: No signs of trauma. No ecchymosis, hematomas or skull depressions. No sinus tenderness. EYES: PERRLA, EOMI x 2, No injected conjunctiva, no nystagmus. EARS: Hearing grossly intact. Ear canals and tympanic membranes are within normal limits. MOUTH: Oropharynx within normal limits. NECK: Supple, trachea is midline, no adenopathy, no JVD, no carotid bruit, no c- spine tenderness, neck with full ROM. CHEST: Symmetric, no tenderness at palpation LUNGS: Clear to auscultation bilaterally. No wheezing or crackles. CVS: Regular rate and rhythm, S1 and S2 present, no murmurs or gallops appreciated. ABDOMEN: Soft, non-tender. No signs of distention. No rebound no guarding, and no masses palpated. Bowel sounds are normal. EXTREMITIES: Right knee swelling and surrounding erythema possibly due to infection or psoriasis. NEURO: Alert and oriented x 3. No acute neurological deficits. Speech is normal and follows commands. SKIN: Dry and warm Triage Information Reviewed: Yes Vital Signs On Initial Exam: Initial Vitals Temp Pulse Resp BP Pulse Ox 98.4 F 76 16 154/85 100 05/02/18 14:51 05/02/18 14:51 05/02/18 14:51 05/02/18 14:51 05/02/18 14:51 Vital Signs Reviewed: Yes Diagnostics - Vital Signs Vital Signs Temp Pulse Resp BP Pulse Ox 05/02/18 14:51 98.4 F 76 16 154/85 100 - Laboratory Result Diagrams: 05/02/18 15:23 05/02/18 15:23 Lab Statement: Any lab studies that have been ordered have been reviewed, and results considered in the medical decision making process. Lower Extremity Course/Dx - Course Assessment/Plan: This patient is a 47-year-old male who presents to the emergency department with a chief complaint of having a right knee pain. Patient was seen by Dr. Mcghee today and he was transferred to the emergency department for blood work and admission to the hospital. The patient has been diagnosed with cellulitis failing to be on antibiotics. Patient reports that he has taken doxycycline, Keflex and clindamycin. However the symptoms have not improved therefore the patient was sent to the emergency department for further workup and management. Blood work without a significant abnormality except for increased ESR and CRP. As per plan from Dr. Mcghee and Dr. Thomas the patient will be admitted to Dr. Thomas services for for further workup and management. I understand that Dr. Mcghee will be doing the need For this patient. At this point the patient is hemoglobin after stable alert and oriented 3. - Diagnoses Differential Diagnosis/HQI/PQRI: Positive: Bursitis, Cellulitis, Septic Arthritis Provider Diagnoses: Infection of knee - Physician Notifications Discussed Care Of Patient With: Alfredito Simon Time Discussed With Above Provider: 18:15 Instructed by Provider To: Other - Accepts for admission. NOTE: At 1522 Dr. Thomas recommended work up and put medications such as Vancomycin, Doxycycline and Levaquin. Will admit patient. Discharge - Sign-Out/Discharge Documenting (check all that apply): Patient Departure - Discharge Plan Condition: Stable Disposition: ADMITTED TO [facility] Referrals: Jessee Reyna MD [Primary Care Provider] - - Billing Disposition and Condition Condition: STABLE Disposition: Admitted to [facility]
[2018-05-02] MEDS ORDERED: Vancomycin(*) 1,000 MG in NS 0.9% 250 ML* 250 ML IVPB ONE (15:24)
[2018-05-02] MEDS ORDERED: Levofloxacin 750 MG IVPREMIX(* 750 MG/150 ML BAG IVPB ONE (15:24)
[2018-05-02 15:37] LABS: ABS Basophils 0.1 10^3/ul (0-0.2); ABS Eosinophils 0.3 10^3/ul (0-0.6); ABS Lymphocytes 1.2 10^3/ul (1.0-4.8); ABS Monocytes 0.4 10^3/ul (0-0.8); ABS Neutrophils 3.4 10^3/ul (1.5-7.7); ABS Nucleated RBC 0 10^3/ul; Eosinophil % 5.6 % (0-6); Hematocrit 37 % (42-52); Hemoglobin 12.8 g/dl (14.0-18.0); Lymphocyte % 21.9 % (25-47); Mean Corpuscular HGB Conc 34 g/dl (31-36); Mean Corpuscular Hemoglobin 29 pg (27-31); Mean Corpuscular Volume 84 fL (80-94); Mean Platelet Volume 7.2 um3 (7.4-10.4); Nucleated Red Blood Cells % 0; Platelet Count 234 10^3/ul (150-450); Red Blood Count 4.42 10^6/ul (4.00-5.40); Red Cell Distribution Width 15 % (10.5-15); White Blood Count 5.4 10^3/ul (3.5-10.8)
[2018-05-02 15:54] LABS: Uric Acid 4.6 mg/dL (4.4-7.6)
[2018-05-02 17:32] LABS: EGFR Non-African American 86.4 (>60)
[2018-05-02] MEDS ORDERED: NS 0.9% 250 ML* 250 ML ONE (17:52)
[2018-05-02] MEDS ORDERED: Ondansetron INJ* 2 MG/ML VIAL IV PRN ×2 (18:46→23:52)
[2018-05-02] MEDS ORDERED: Vancomycin per Pharmacy* NOTE FOLLOW UP PRN (19:43)
[2018-05-02] MEDS ORDERED: Midazolam* 1 MG/ML 5 ML VIAL (5 MG) SLOW PUSH ONE (19:47)
[2018-05-02] MEDS ORDERED: Glycopyrrolate IV* 0.2 MG/ML 1 ML VIAL ONE (19:56)
[2018-05-02 20:05] LABS: Urine Appearance Clear; Urine Blood 1+ (Negative); Urine Color Straw; Urine Ketones Negative (Negative); Urine Protein Negative (Negative); Urine Red Blood Cell Absent (Absent); Urine Specific Gravity 1.008 (1.010-1.030); Urine Urobilinogen Negative (Negative); Urine White Blood Cell Absent (Absent)
[2018-05-02] MEDS ORDERED: GLYCOPYRROLATE 1 MG PO SCH (21:00)
[2018-05-02] MEDS: Heparin VIAL(*) 5000 UNITS/ML VIAL (FIVE THOUSAND) SUBCUT SCH (21:35)
[2018-05-02] MEDS ORDERED: Metoclopramide IV* 5 MG/ML 2 ML VIAL ONE (22:25)
--- NOTE | 2018-05-02 22:30 | PN ---
Progress Note - Progress Note Date of Service: 05/02/18 Note: H and P update Pt seen and examined. Full note dictated previously in system. Tap resulted in low WBC count but + gram stain. Plan is for R knee arthroscopic irrigation and debridement. Will continue IV abx post op.
[2018-05-02] MEDS ORDERED: ceFAZolin 2 GM PREMIX (*) 2 GM/50 ML BAG IVPB ONE (22:42)
[2018-05-02] MEDS ORDERED: Chloroprocaine 2%* 20 ML VIAL ONE (22:54)
[2018-05-02] MEDS ORDERED: Midazolam* 1 MG/ML 2 ML VIAL (2 MG) ONE ×2 (22:55→22:56)
[2018-05-02] MEDS ORDERED: fentaNYL* 50 MCG/ML 2 ML VIAL (100 MCG VIAL) ONE (22:56)
[2018-05-02] MEDS ORDERED: Bupivacaine 0.25% SDV PF* 10 ML VIAL INJ ONE (22:59)
[2018-05-02] MEDS ORDERED: fentaNYL* 50 MCG/ML 2 ML VIAL (100 MCG VIAL) IV PRN (23:52)
[2018-05-02] MEDS ORDERED: Naloxone* 0.4 MG/ML 1 ML VIAL IV PRN (23:52)
[2018-05-03] MEDS ORDERED: EPHEDrine (Pressors)* 50 MG/ML VIAL ONE (00:25)
[2018-05-03] MEDS: Vancomycin(*) 1,000 MG in NS 0.9% 250 ML* 250 ML IVPB SCH ×4 (01:30→23:57)
--- NOTE | 2018-05-03 01:45 | HP ---
CC: Dr. Reyna * ADMISSION HISTORY AND PHYSICAL: DATE OF ADMISSION: 05/02/18 PRIMARY CARE PROVIDER: Dr. Reyna. MY ATTENDING PHYSICIAN WHILE IN THE HOSPITAL: Dr. Bird Chavarria.* ( DICTATED BY DINO ROMO) CHIEF COMPLAINT: Redness and right knee pain for 5 days. HISTORY OF PRESENT ILLNESS: Mr. Lorenzana is a 47-year-old male with past medical history significant for psoriatic arthritis affecting his spine, bilateral hips , and knee; hypertension, migraines, and multiple knee surgeries, who presented to emergency department after being sent in from his orthopedist's office after 5 days of redness and swelling on his knee. The patient states that this began rather suddenly on Friday with large amount of swelling with associated chills and nausea, with mild shortness of breath, but without wheezing, chest pain, abdominal pain, diarrhea or other systemic symptoms. The patient had a documented fever on Friday when he was seen by his orthopedist. The patient initially went to see his adjunct latin professor on Friday and had an attempted arthrocentesis, which yielded no fluid, and was listed as a vasovagal response with suspected brief asystolic episode. The patient was observed in the emergency department briefly after that and sent home. The patient then followed up with his orthopedist on Friday who had concern for cellulitis, with mild concern for underlying septic arthritis. The patient was initially started on doxycycline for concern for Lyme disease and had tick-borne panel sent, which was negative. The patient was then started on Keflex for cellulitis and did not improve. The patient was then started on clindamycin, which also did not improve his knee or the redness around his knee. The patient was sent in from Dr. Cait Mcghee's office today. The patient states that the pain in his left knee has been relatively constant, but it is worse with flexion and better with extension, though extension causes pain in his hip , which is not new. The patient states that he has pain with walking, but is not incapacitated by the pain. The patient states there is pain with any movement of the knee, but it is not severe. The patient has had several episodes of tick bites, the most recent one being in September of last year. The patient had no erythema, migraines or rash. The patient has a history of torn meniscus, torn MCL, and torn ACL, which were surgically repaired. The patient was recently started on Taltz for control of his psoriatic arthritis. He has also been on methotrexate weekly. This patient's Taltz and methotrexate were discontinued on Friday due to concern for infection. The patient, at that time, was started on meloxicam, which he states does not help with the pain in his leg. The patient has had no adverse reactions to the antibiotics including abdominal pain or diarrhea. We are asked to evaluate for admission due to concern for cellulitis, septic arthritis, and failed outpatient treatment with need for IV antibiotics. PAST MEDICAL HISTORY: Psoriasis with psoriatic arthritis, hypertension, GERD, Raynaud's phenomenon, migraines, anxiety; MCL, meniscus and ACL tears; insomnia ; mesenteric artery dissection, self resolved. PAST SURGICAL HISTORY: Total shoulder replacement, appendectomy, knee surgery with MCL, ACL and meniscus tear replacement. MEDICATIONS: 1. Folic acid 1 mg p.o. daily. 2. Celecoxib 200 mg p.o. daily. 3. Nitropaste 2% as needed for Raynaud's disease. 4. D3 1000 units p.o. daily. 5. Amlodipine 5 mg p.o. daily. 6. Losartan 200 mg p.o. daily. 7. Trazodone 50 mg p.o. nightly as needed. 8. Venlafaxine 150 mg p.o. daily. 9. Losartan 100 mg p.o. daily. 10. Rizatriptan 10 mg p.o. twice weekly as needed. 11. Meloxicam 15 mg p.o. daily. Recently discontinued medications include: 1. Taltz. 2. Methotrexate. ALLERGIES: ASPIRIN, TYLENOL, SULFA. FAMILY HISTORY: The patient's mother is alive and has no health issues. The patient's paternal grandmother had stomach cancer. The patient's father of suicide and had agoraphobia. The patient's brother and sister have no health problems. SOCIAL HISTORY: The patient does not smoke, drink or use illicit drug; the patient never has. 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 The patient is and has 3 healthy children. REVIEW OF SYSTEMS: A 14-point review of systems was reviewed and is negative, except as above in the history and physical. PHYSICAL EXAMINATION GENERAL: The patient is a 47-year-old male, who appears stated age and sitting comfortably on the bed, in no acute distress. VITAL SIGNS: At the time of evaluation, temperature 99.1, pulse rate 68, respiratory rate 18, oxygen saturation 97% on room air, blood pressure 128/87. HEENT: Head is normocephalic, atraumatic. Sclerae are anicteric. No conjunctival injection. Nasal mucosa moist. Oral mucosa moist. No pharyngeal erythema, discharge or exudate. NECK: Supple. There is no lymphadenopathy. No carotid bruit auscultated. No JVD. RESPIRATORY: Clear to auscultation bilaterally. No wheezes, rales or rhonchi. Good air exchange bilaterally. HEART: Regular rate and rhythm. No clicks, murmurs, gallops or rubs. Pulse is 2+ in the bilateral dorsalis pedis, posterior tibialis, and radial areas. Trace right lower extremity edema through the whole legs. No bilateral calf tenderness noted. ABDOMEN: Soft, nontender, nondistended. Bowel sounds are present and normoactive in all 4 quadrants. No hepatosplenomegaly. No abdominal bruits auscultated. No hepatojugular reflux. GENITOURINARY: No suprapubic or CVA tenderness. SKIN: The patient has psoriasis on his knuckle and bilateral MCPs, as well as on his knees, small areas throughout. The patient has petechial rash in his right lower extremity and a slight blanchable erythematous rash on the medial and proximal aspects of his right lower extremity. MUSCULOSKELETAL: The patient's left knee is swollen, tender, with positive ballottement. Tenderness with passive flexion and extension throughout the range of motion, mild. No clicking or laxity noted. NEUROLOGIC: Cranial nerves II through XII are intact. No focal deficits. Alert and oriented x3. PSYCHIATRIC: Pleasant and cooperative. DIAGNOSTIC STUDIES/LAB DATA: White blood cell count 5.4, hemoglobin 12.8, platelet count 234, ESR 45. Sodium 136, potassium 4.3, chloride 102, carbon dioxide 24, anion gap 10, BUN 19, creatinine 0.93, glucose 92, lactic acid 1.7, uric acid 4.6, calcium 9.1, bilirubin 0.5, AST 26, ALT 39, alkaline phosphatase 79, CRP 78.16. Protein 6.9, albumin 4.0, globulin 2.9. Studies: Recent knee x-ray from 04/29/18 read as significant right knee soft tissue swelling and moderate joint effusion, postsurgical change of ACL reconstruction, mild osteoarthritis, correlate with clinical presentation for potential signs of cellulitis and septic arthritis. ASSESSMENT AND PLAN: Mr. Lorenzana is a 47-year-old who appears his stated age and is sitting comfortably on the bed, with a past medical history significant for psoriatic arthritis, hypertension, gastroesophageal reflux disease and multiple knee surgeries, who presents with 1 week of sudden onset redness, swelling and pain in his right knee. The patient has followed with Rheumatology and Orthopedics and was referred to the hospital for failed outpatient treatment for cellulitis and possible septic arthritis. The patient will be admitted hospital for IV antibiotics, blood cultures, supportive care and arthrocentesis , as well as orthopedic consultation. 1. Right knee effusion, redness, rule out septic arthritis: The differential for patient's knee pain and swelling includes septic arthritis, inflammatory arthritis, crystal arthritis; however, the patient's uric acid is normal. The patient has had issues with psoriatic arthritis affecting his knee; however, this acute presentation is atypical. The patient is able to walk on his knee and does not have excruciating pain nor systemic symptoms; however, his inflammatory markers are high. The patient will be started on vancomycin and ceftriaxone for empiric coverage of both methicillin-resistant Staphylococcus aureus and gram-negative bacteria that might be causing septic arthritis. The patient will have arthrocentesis with the Orthopedics tonight, with Dr. Nolasco. The patient will be monitored under anesthesia with Dr. Emmanuel due to previous vasovagal reaction. The patient's inflammatory markers will be trended on IV antibiotics and he will be transitioned to oral antibiotics as appropriate. Blood cultures are pending. The patient does not meet sepsis criteria. 2. Psoriasis: The patient is currently on no disease-modifying antirheumatic drugs for psoriatic arthritis due to concern for infection; resume these as outpatient at the discretion of Rheumatology and Orthopedics. Hold meloxicam while in the hospital due to history of gastroesophageal reflux disease and concern for upper gastrointestinal bleeding. 3. Hypertension: Continue lisinopril and amlodipine. 4. FEN: The patient will have regular unrestricted diet. The patient has no indication for fluids. 5. DVT prophylaxis: The patient is a moderate risk and will have heparin subcu. 6. Code status: The patient would like to be a full code. The patient would like his surrogate decision maker to be his , Jody Lorenzana. 7. Disposition: The patient will be admitted for observation. TIME SPENT: Approximately 75 minutes were spent on this admission, 45 of which was spent [id number] with the patient obtaining history and physical and discussing treatment plan. The plan was discussed with my attending, Dr. Hossein Chavarria, and he is in agreement. DINO ROMO [id number]/[facility] #: [id number] YARITZA
--- NOTE | 2018-05-03 03:00 | CONS ---
CC: Dr. Javed; Dr. Mcghee; PCP, John Avery MD * CONSULTATION REPORT: DATE OF CONSULT: 05/02/18 ATTENDING PHYSICIAN: Maxx Nolasco MD CONSULTING PHYSICIAN: DINO Lee CHIEF COMPLAINT: Right knee swelling and possible cellulitis versus septic joint. HISTORY OF PRESENT ILLNESS: Briefly Michael Lorenzana is a 47-year-old male who was seen by my partner Dr. Mcghee earlier this week as well as Dr. Javed, who is his bonding machine setter. He has a diagnosis of psoriatic arthritis and he has had right knee swelling and pain that has been going on just under 2 weeks. He has history of an ACL reconstruction in the past as well as a meniscus tear. He several days ago developed some redness about the knee, was seen by Dr. Javed. He tried to do an aspiration and the patient went vasovagal. Labs were done, which demonstrated normal white count, but a mildly elevated ESR, CRP. He was advised to undergo another aspiration, but declined on [address] Mcghee. He was instructed that if his symptoms worsen and he needs to go to the ER if he started to have fevers or chills, pain with weight bearing or worsening symptoms, he needed to go. He was placed on at least 2 antibiotics one of which was Keflex, second one was clindamycin. There was concern for worsening of the rash but his symptoms seemed to have improved. Currently, he saying he is not in significant amount of pain and most of it is from the cellulitis which is extending down his legs. He is able to bend and straighten his knee. I watched him ambulate to the bathroom with very mild limp. He has only had a one low grade temp to 99.1. He denies any other fevers or chills, shortness of breath or any chest pain. He is present with his and I have personally taken care of his daughter before. He denies numbness or tingling. No fevers, chills. PAST MEDICAL HISTORY: Significant for psoriatic arthritis, high blood pressure , hypercholesterolemia, anxiety and depression. PAST SURGICAL HISTORY: Left ankle surgery, right knee failed reconstruction, 3 shoulder surgeries, one of which was a replacement, then a revision of the replacement and finally reverse, this was done by Dr. Frias at [facility], history of vasectomy. MEDICATIONS: Include: 1. Taltz. 2. Methotrexate. 3. Folic acid. 4. Celebrex. 5. Nitro-Bid. 6. D3. 7. Venlafaxine. 8. Pantoprazole. 9. Losartan. 10. Amlodipine. 11. Trazodone. 12. Alprazolam. 13. Rizatriptan. 14. Aspirin. ALLERGIES: TYLENOL, ASPIRIN, SULFA ANTIBIOTICS and TAPE. FAMILY HISTORY: Significant for maternal hypertension. A brother with mixed variety of spondyloarthropathy as well as high blood pressure. SOCIAL HISTORY: He lives with his and children. 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 He chews tobacco. He does not smoke, does not drink alcohol. No recreational drug use. His other hobbies include hunting. He is right hand dominant. He is a community ambulator. PHYSICAL EXAM: He is in no acute distress. He is well-developed, well- nourished. He is oriented x3. He is pleasant mood with normal affect. He is able to walk, has very slightly antalgic gait, but otherwise good balance and coordination. Examination of the right knee demonstrates an effusion, has palpable range of motions 0 to 130 degrees, stable to varus and valgus stress, tender about the medial joint line. He has an area of cellulitis extending down his ankle laterally. He has a lot of cellulitis. No significant warmth is palpable to both sides. His calf is soft and nontender. He is sensate to light touch about the first dorsal webspace, medial, lateral, dorsal, and plantar foot. He has 2+ PT pulse. He has 5/5 strength in dorsiflexion and plantar flexion. DIAGNOSTIC STUDIES/LAB DATA: X-rays that were obtained previously that demonstrates, no fracture, dislocation. Mild degenerative changes seen previously at ACL. Labs obtained today, demonstrate a white count of 5.4. Hematocrit of 37, platelet count of 234, ESR of 45, which is up from 22, which was about 4 days ago. Chemistries: Sodium 136, potassium 4.3, chloride 102, carbon dioxide 24, BUN 19, creatinine 0.93, glucose 92. Uric acid on 04/29/18 is 5.9. CRP is 78.16 which is up from 03/25/18 at 2.93, procalcitonin 0.1. UA is negative. Labs looking for Lyme disease is negative for anaplasma, Babesia, Lyme disease Borrelia. This is serology for 04/29/18. ASSESSMENT AND PLAN: He has right knee swelling and pain. He has been seen by an orthopedic surgeon as well as bonding machine setter multiple times. He presented to the ER today with concerns for worsening symptoms. He is currently being admitted to Medicine for suspected cellulitis. He still has knee effusion and with some discomfort. Although his symptoms relatively have improved quite a bit and he has good mobility of the knee with no evidence of pain with weight- bearing, I think it is appropriate to aspirate his knee. He is in a protective situation, where we can make him comfortable and try to address his issues if he has a vasovagal response again barring any kind of advance measures. After discussion with the patient and his as well as Dr. Mcghee and Alfredito Simon , the PA and the ED attending, we have decided to proceed with aspiration of the knee. Because the patient has recent history of vasovagal response just to this knee aspiration and not to any other previous injection, it is appropriate we consulted Anesthesia to help us facilitate this. The patient did just recently eat, he cannot have real conscious sedation, he will be given Versed as well as glycopyrrolate and will be monitored closely. After the anesthesiologist was ready, the right knee was prepped and draped in usual sterile fashion and using the ED ultrasound, the effusion was identified under ultrasound guidance. Kumari images were obtained. An 18-gauge needle was used to aspirate the fluid. The patient did tense during the procedure, but approximately 3 cc of fluid were removed. This appeared to be bloody and slightly cloudy fluid. He tolerated the injection well. A bandage was applied. We will send it for Gram stain, culture, cell count, Lyme and we will order this stat. The patient will be n.p.o. and we will monitor. If there is any abnormality in the Gram stain or a very elevated white blood cell count, we will take him to the OR to undergo I and D of his knee. He verbalized understanding. For now, he is admitted to Medicine and will be on IV antibiotics. We will continue to monitor the patient. Any questions were invited and answered. [id number]/[facility] #: [id number] [facility]IC CENTERJamari
[2018-05-03] MEDS: HYDROmorphone INJ* 0.5 MG/0.5 ML SYRINGE IV PRN ×3 (03:43→14:44)
[2018-05-03 05:43] LABS: ABS Basophils 0 10^3/ul (0-0.2); ABS Eosinophils 0.3 10^3/ul (0-0.6); ABS Lymphocytes 1.2 10^3/ul (1.0-4.8); ABS Monocytes 0.4 10^3/ul (0-0.8); ABS Neutrophils 4.5 10^3/ul (1.5-7.7); ABS Nucleated RBC 0 10^3/ul; Eosinophil % 4.2 % (0-6); Hematocrit 36 % (42-52); Hemoglobin 12.3 g/dl (14.0-18.0); Lymphocyte % 18.7 % (25-47); Mean Corpuscular HGB Conc 34 g/dl (31-36); Mean Corpuscular Hemoglobin 29 pg (27-31); Mean Corpuscular Volume 84 fL (80-94); Mean Platelet Volume 7.2 um3 (7.4-10.4); Nucleated Red Blood Cells % 0.1; Platelet Count 214 10^3/ul (150-450); Red Blood Count 4.23 10^6/ul (4.00-5.40); Red Cell Distribution Width 15 % (10.5-15); White Blood Count 6.4 10^3/ul (3.5-10.8)
[2018-05-03] MEDS: Heparin VIAL(*) 5000 UNITS/ML VIAL (FIVE THOUSAND) SUBCUT SCH ×3 (05:54→21:44)
[2018-05-03 06:05] LABS: EGFR Non-African American 73.5 (>60)
--- NOTE | 2018-05-03 08:05 | PN ---
Progress Note - Progress Note Date of Service: 05/03/18 SOAP: Subjective: resting comfortably with complaints of right knee pain; controlled with current pain regimen Objective: Vital Signs Temp Pulse Resp BP Pulse Ox 97.8 F 54 18 111/72 97 05/03/18 07:17 05/03/18 07:17 05/03/18 07:37 05/03/18 07:17 05/03/18 07:17 Laboratory Last Values WBC 6.4 10^3/ul (3.5-10.8) 05/03/18 05:22 RBC 4.23 10^6/ul (4.00-5.40) 05/03/18 05:22 Hgb 12.3 g/dl (14.0-18.0) L 05/03/18 05:22 Hct 36 % (42-52) L 05/03/18 05:22 MCV 84 fL (80-94) 05/03/18 05:22 MCH 29 pg (27-31) 05/03/18 05:22 MCHC 34 g/dl (31-36) 05/03/18 05:22 RDW 15 % (10.5-15) 05/03/18 05:22 Plt Count 214 10^3/ul (150-450) 05/03/18 05:22 MPV 7.2 um3 (7.4-10.4) L 05/03/18 05:22 Neut % (Auto) 70.2 % (38-83) 05/03/18 05:22 Lymph % (Auto) 18.7 % (25-47) L 05/03/18 05:22 Jerome % (Auto) 6.2 % (0-7) 05/03/18 05:22 Eos % (Auto) 4.2 % (0-6) 05/03/18 05:22 Baso % (Auto) 0.7 % (0-2) 05/03/18 05:22 Absolute Neuts (auto) 4.5 10^3/ul (1.5-7.7) 05/03/18 05:22 Absolute Lymphs (auto) 1.2 10^3/ul (1.0-4.8) 05/03/18 05:22 Absolute Monos (auto) 0.4 10^3/ul (0-0.8) 05/03/18 05:22 Absolute Eos (auto) 0.3 10^3/ul (0-0.6) 05/03/18 05:22 Absolute Basos (auto) 0 10^3/ul (0-0.2) 05/03/18 05:22 Absolute Nucleated RBC 0 10^3/ul 05/03/18 05:22 Nucleated RBC % 0.1 05/03/18 05:22 ESR 45 mm/Hr (0-14) H 05/02/18 15:23 Sodium 138 mmol/L (135-145) 05/03/18 05:22 Potassium 5.1 mmol/L (3.5-5.0) H 05/03/18 05:22 Chloride 105 mmol/L (101-111) 05/03/18 05:22 Carbon Dioxide 28 mmol/L (22-32) 05/03/18 05:22 Anion Gap 5 mmol/L (2-11) 05/03/18 05:22 BUN 20 mg/dL (6-24) 05/03/18 05:22 Creatinine 1.07 mg/dL (0.67-1.17) 05/03/18 05:22 Est GFR ( Amer) 88.9 (>60) 05/03/18 05:22 Est GFR (Non-Af Amer) 73.5 (>60) 05/03/18 05:22 BUN/Creatinine Ratio 18.7 (8-20) 05/03/18 05:22 Glucose 121 mg/dL (70-100) H 05/03/18 05:22 Lactic Acid 1.7 mmol/L (0.5-2.0) 05/02/18 15:23 Uric Acid 4.6 mg/dL (4.4-7.6) 05/02/18 15:23 Calcium 8.6 mg/dL (8.6-10.3) 05/03/18 05:22 Magnesium 2.1 mg/dL (1.9-2.7) 05/03/18 05:22 Total Bilirubin 0.50 mg/dL (0.2-1.0) 05/02/18 15:23 AST 26 U/L (13-39) 05/02/18 15:23 ALT 39 U/L (7-52) 05/02/18 15:23 Alkaline Phosphatase 79 U/L (34-104) 05/02/18 15:23 C-Reactive Protein 78.16 mg/L (<8.01) H 05/02/18 15:23 Total Protein 6.9 g/dL (6.4-8.9) 05/02/18 15:23 Albumin 4.0 g/dL (3.2-5.2) 05/02/18 15:23 Globulin 2.9 g/dL (2-4) 05/02/18 15:23 Albumin/Globulin Ratio 1.4 (1-3) 05/02/18 15:23 Procalcitonin < 0.1 ng/mL (<0.6) 05/03/18 05:22 Urine Color Straw 05/02/18 19:00 Urine Appearance Clear 05/02/18 19:00 Urine pH 5.0 (5-9) 05/02/18 19:00 Ur Specific [place] 1.008 (1.010-1.030) L 05/02/18 19:00 Urine Protein Negative (Negative) 05/02/18 19:00 Urine Ketones Negative (Negative) 05/02/18 19:00 Urine Blood 1+ (Negative) A 05/02/18 19:00 Urine Nitrate Negative (Negative) 05/02/18 19:00 Urine Bilirubin Negative (Negative) 05/02/18 19:00 Urine Urobilinogen Negative (Negative) 05/02/18 19:00 Ur Leukocyte Esterase Negative (Negative) 05/02/18 19:00 Urine WBC (Auto) Absent (Absent) 05/02/18 19:00 Urine RBC (Auto) Absent (Absent) 05/02/18 19:00 Urine Bacteria Absent (Absent) 05/02/18 19:00 Urine Glucose Negative (Negative) 05/02/18 19:00 Fluid Source Synovial fluid 05/02/18 19:53 Fluid Volume 3 mL 05/02/18 19:53 Fluid Color Red 05/02/18 19:53 Fluid Appearance Bloody 05/02/18 19:53 Fluid WBC 21233 /mcL ([id number]) 05/02/18 19:53 Fluid RBC 75490 /mcL 05/02/18 19:53 Fluid Tot Cell Count 100 05/02/18 19:53 Fluid Neutrophils 87 % 05/02/18 19:53 Fluid Lymphocytes 5 % 05/02/18 19:53 Fluid Monocytes 8 % 05/02/18 19:53 Fluid Crystals None seen (None Seen) 05/02/18 22:06 incision: c/d PE: NVI Assessment: s/p I&D right knee Plan: 1) continue IV Abx 2) Heparin/SCD's for DVT prophylaxis 3) PT/OT-WBAT
[2018-05-03] MEDS: amLODIPine TAB* 5 MG PO SCH (08:53)
[2018-05-03] MEDS: Folic Acid TAB* 1 MG PO SCH (08:54)
[2018-05-03] MEDS: Losartan TAB* 25 MG PO SCH (08:54)
[2018-05-03] MEDS: Venlafaxine EXT RELEASE CAP* 75 MG PO SCH (08:54)
--- NOTE | 2018-05-03 09:55 | PN ---
Subjective Date of Service: 05/03/18 Interval History: Right knee pain 4-5/10. Improved with diluadid MRSA PCR positive on joint aspiration. GPC on GS. ID consult and PICC line ordered. last methotrexate (has been on for ~5 weeks) on sunday 04/29, last ixekizumab 2 weeks ago friday (both now stopped) Objective Active Medications: Amlodipine Besylate (Norvasc Tab*) 5 mg PO DAILY [facility] Last Admin: 05/03/18 08:53 Dose: 5 mg Folic Acid (Folvite Tab*) 1 mg PO DAILY [facility] Last Admin: 05/03/18 08:54 Dose: 1 mg Heparin Sodium (Porcine) (Heparin Vial(*)) 5,000 units SUBCUT Q8HR [facility] Last Admin: 05/03/18 05:54 Dose: 5,000 units Hydromorphone HCl (Dilaudid Inj*) 0.5 mg IV Q3H PRN PRN Reason: PAIN Last Admin: 05/03/18 07:37 Dose: 0.5 mg Ceftriaxone Sodium 2 gm/ (Sodium Chloride) 100 mls @ 200 mls/hr IVPB Q24H [facility] Vancomycin HCl 1,000 mg/ (Sodium Chloride) 250 mls @ 166.667 mls/hr IVPB Q8H [facility] Last Admin: 05/03/18 07:35 Dose: 166.667 mls/hr Losartan Potassium (Cozaar Tab*) 100 mg PO DAILY [facility] Last Admin: 05/03/18 08:54 Dose: 100 mg Ondansetron HCl (Zofran Inj*) 4 mg IV Q6H PRN PRN Reason: NAUSEA Pharmacy Consult (Vancomycin Per Pharmacy*) 1 note FOLLOW UP . PRN PRN Reason: PER PROTOCOL Pharmacy Profile Note (Vancomycin Trough Check) 1 note FOLLOW UP 729 ONE Stop: 05/04/18 07:31 Venlafaxine HCl (Effexor Xr Cap*) 150 mg PO DAILY [facility] Last Admin: 05/03/18 08:54 Dose: 150 mg Vital Signs - 8 hr 05/03/18 05/03/18 05/03/18 02:29 03:38 03:43 Temperature 97.7 F 97.8 F Pulse Rate 68 63 Respiratory 18 18 18 Rate Blood Pressure 120/66 110/61 (mmHg) O2 Sat by Pulse 94 95 Oximetry 05/03/18 05/03/18 05/03/18 04:45 05:05 07:17 Temperature 97.8 F 97.8 F Pulse Rate 51 54 Respiratory 16 16 14 Rate Blood Pressure 126/70 111/72 (mmHg) O2 Sat by Pulse 96 97 Oximetry 05/03/18 05/03/18 07:37 08:54 Temperature Pulse Rate Respiratory 18 18 Rate Blood Pressure (mmHg) O2 Sat by Pulse Oximetry Oxygen Devices in Use Now: None Appearance: NAD Eyes: No Scleral Icterus, PERRLA Ears/Nose/Mouth/Throat: NL Teeth, Lips, Gums, Mucous Membranes Moist Neck: NL Appearance and Movements; NL JVP Respiratory: Symmetrical Chest Expansion and Respiratory Effort, Clear to Auscultation Cardiovascular: NL Sounds; No Murmurs; No JVD, RRR Abdominal: NL Sounds; No Tenderness; No Distention, No Hepatosplenomegaly Extremities: No Edema, - - right knee in immobilizer Skin: No Rash or Ulcers Neurological: Alert and Oriented x 3, NL Sensation, NL Muscle Strength and Tone Nutrition: Taking PO's Result Diagrams: 05/03/18 05:22 05/03/18 05:22 Additional Lab and Data: Laboratory Results - last 24 hr 05/02/18 05/02/18 05/02/18 15:23 15:23 15:23 WBC 5.4 RBC 4.42 Hgb 12.8 L Hct 37 L MCV 84 MCH 29 MCHC 34 RDW 15 Plt Count 234 MPV 7.2 L Neut % (Auto) 63.4 Lymph % (Auto) 21.9 L [place] % (Auto) 8.0 H Eos % (Auto) 5.6 Baso % (Auto) 1.1 Absolute Neuts (auto) 3.4 Absolute Lymphs (auto) 1.2 Absolute Monos (auto) 0.4 Absolute Eos (auto) 0.3 Absolute Basos (auto) 0.1 Absolute Nucleated RBC 0 Nucleated RBC % 0 ESR 45 H Sodium 136 Potassium 4.3 Chloride 102 Carbon Dioxide 24 Anion Gap 10 BUN 19 Creatinine 0.93 Est GFR ( Amer) 104.5 Est GFR (Non-Af Amer) 86.4 BUN/Creatinine Ratio 20.4 H Glucose 92 Lactic Acid 1.7 Uric Acid 4.6 Calcium 9.1 Magnesium Total Bilirubin 0.50 AST 26 ALT 39 Alkaline Phosphatase 79 C-Reactive Protein 78.16 H Total Protein 6.9 Albumin 4.0 Globulin 2.9 Albumin/Globulin Ratio 1.4 Procalcitonin Urine Color Urine Appearance Urine pH Ur Specific [place] Urine Protein Urine Ketones Urine Blood Urine Nitrate Urine Bilirubin Urine Urobilinogen Ur Leukocyte Esterase Urine WBC (Auto) Urine RBC (Auto) Urine Bacteria Urine Glucose Fluid Source Fluid Volume Fluid Color Fluid Appearance Fluid WBC Fluid RBC Fluid Tot Cell Count Fluid Neutrophils Fluid Lymphocytes Fluid Monocytes Fluid Crystals 05/02/18 05/02/18 05/02/18 15:23 19:00 19:53 WBC RBC Hgb Hct MCV MCH MCHC RDW Plt Count MPV Neut % (Auto) Lymph % (Auto) [place] % (Auto) Eos % (Auto) Baso % (Auto) Absolute Neuts (auto) Absolute Lymphs (auto) Absolute Monos (auto) Absolute Eos (auto) Absolute Basos (auto) Absolute Nucleated RBC Nucleated RBC % ESR Sodium Potassium Chloride Carbon Dioxide Anion Gap BUN Creatinine Est GFR ( Amer) Est GFR (Non-Af Amer) BUN/Creatinine Ratio Glucose Lactic Acid Uric Acid Calcium Magnesium Total Bilirubin AST ALT Alkaline Phosphatase C-Reactive Protein Total Protein Albumin Globulin Albumin/Globulin Ratio Procalcitonin 0.1 Urine Color Straw Urine Appearance Clear Urine pH 5.0 Ur Specific [place] 1.008 L Urine Protein Negative Urine Ketones Negative Urine Blood 1+ A Urine Nitrate Negative Urine Bilirubin Negative Urine Urobilinogen Negative Ur Leukocyte Esterase Negative Urine WBC (Auto) Absent Urine RBC (Auto) Absent Urine Bacteria Absent Urine Glucose Negative Fluid Source Synovial fluid Fluid Volume 3 Fluid Color Red Fluid Appearance Bloody Fluid WBC 64923 Fluid RBC 56215 Fluid Tot Cell Count 100 Fluid Neutrophils 87 Fluid Lymphocytes 5 Fluid Monocytes 8 Fluid Crystals 05/02/18 05/03/18 05/03/18 22:06 05:22 05:22 WBC 6.4 RBC 4.23 Hgb 12.3 L Hct 36 L MCV 84 MCH 29 MCHC 34 RDW 15 Plt Count 214 MPV 7.2 L Neut % (Auto) 70.2 Lymph % (Auto) 18.7 L [place] % (Auto) 6.2 Eos % (Auto) 4.2 Baso % (Auto) 0.7 Absolute Neuts (auto) 4.5 Absolute Lymphs (auto) 1.2 Absolute Monos (auto) 0.4 Absolute Eos (auto) 0.3 Absolute Basos (auto) 0 Absolute Nucleated RBC 0 Nucleated RBC % 0.1 ESR Sodium 138 Potassium 5.1 H Chloride 105 Carbon Dioxide 28 Anion Gap 5 BUN 20 Creatinine 1.07 Est GFR ( Amer) 88.9 Est GFR (Non-Af Amer) 73.5 BUN/Creatinine Ratio 18.7 Glucose 121 H Lactic Acid Uric Acid Calcium 8.6 Magnesium 2.1 Total Bilirubin AST ALT Alkaline Phosphatase C-Reactive Protein Total Protein Albumin Globulin Albumin/Globulin Ratio Procalcitonin Urine Color Urine Appearance Urine pH Ur Specific [place] Urine Protein Urine Ketones Urine Blood Urine Nitrate Urine Bilirubin Urine Urobilinogen Ur Leukocyte Esterase Urine WBC (Auto) Urine RBC (Auto) Urine Bacteria Urine Glucose Fluid Source Fluid Volume Fluid Color Fluid Appearance Fluid WBC Fluid RBC Fluid Tot Cell Count Fluid Neutrophils Fluid Lymphocytes Fluid Monocytes Fluid Crystals None seen 05/03/18 05:22 WBC RBC Hgb Hct MCV MCH MCHC RDW Plt Count MPV Neut % (Auto) Lymph % (Auto) [place] % (Auto) Eos % (Auto) Baso % (Auto) Absolute Neuts (auto) Absolute Lymphs (auto) Absolute Monos (auto) Absolute Eos (auto) Absolute Basos (auto) Absolute Nucleated RBC Nucleated RBC % ESR Sodium Potassium Chloride Carbon Dioxide Anion Gap BUN Creatinine Est GFR ( Amer) Est GFR (Non-Af Amer) BUN/Creatinine Ratio Glucose Lactic Acid Uric Acid Calcium Magnesium Total Bilirubin AST ALT Alkaline Phosphatase C-Reactive Protein Total Protein Albumin Globulin Albumin/Globulin Ratio Procalcitonin < 0.1 Urine Color Urine Appearance Urine pH Ur Specific [place] Urine Protein Urine Ketones Urine Blood Urine Nitrate Urine Bilirubin Urine Urobilinogen Ur Leukocyte Esterase Urine WBC (Auto) Urine RBC (Auto) Urine Bacteria Urine Glucose Fluid Source Fluid Volume Fluid Color Fluid Appearance Fluid WBC Fluid RBC Fluid Tot Cell Count Fluid Neutrophils Fluid Lymphocytes Fluid Monocytes Fluid Crystals Microbiology and Other Data: Microbiology 05/03/18 00:00 Knee Right Gram Stain - Final 05/02/18 19:53 Joint Fluid(Synovial) - Knee Right Gram Stain - Final 05/02/18 19:53 Joint Fluid(Synovial) - Knee Right Skin and Soft Tissue MRSA/ MSSA (PCR - Final Mrsa Positive S.aureus Positive Assess/Plan/Problems-Billing Assessment: 47 yo male PMH psoriatic arthritis (recently on methotrexate and IL17A inhibitor Ixekizumab, HTN p/w right knee swelling, pain. MRSA septic joint s/p aspiration and then arthroscopic irrigation with Dr. Nolasco 05/02. Vancomycin. - Patient Problems (1) Septic joint of right knee joint Current Visit: Yes Status: Acute Code(s): M00.9 - PYOGENIC ARTHRITIS, UNSPECIFIED SNOMED Code(s): 541817090 Comment: MRSA on PCR s/p I&D and then arthroscopic irrigation ID consult placed. PICC Line placed. Likely will need at least 2 weeks of IV vanc. f/u specificities. Pt is also relative acquired immunocompromised given recent methotrexate and Ixekizumab (IL17A inihibitor) use. continue ceftriaxone for now. (2) MRSA infection Current Visit: Yes Status: Acute Code(s): A49.02 - METHICILLIN RESIS STAPH INFECTION, UNSP SITE SNOMED Code(s): 732433691 Comment: plan as above (3) HTN (hypertension) Current Visit: Yes Status: Acute Code(s): I10 - ESSENTIAL (PRIMARY) HYPERTENSION SNOMED Code(s): 40212033 Comment: continue home losartan 100mg, amlodipine 5. BP controlled (4) Psoriatic arthritis Current Visit: Yes Status: Acute Code(s): L40.50 - ARTHROPATHIC PSORIASIS, UNSPECIFIED SNOMED Code(s): 492543919 Comment: patient recently on methotrexate ~5 weeks and Ixekizumab (IL17A inhibitor) and therefore at increased risk for infections. Follows with Dr. Javed. (5) Immunocompromised state Current Visit: Yes Status: Acute Code(s): D84.9 - IMMUNODEFICIENCY, UNSPECIFIED SNOMED Code(s): 657773633 Status and Disposition: medicine will switch to inpatient. needs PICC, ID consult and setup of home vancomycin so can't leave today.
[2018-05-03] MEDS ORDERED: cefTRIAXone(*) 2 GM in NS 0.9% 100 ML* 100 ML IVPB SCH (15:00)
[2018-05-03] MEDS ORDERED: oxyCODONE/Acetamin 5/325 MG* TAB PO PRN (15:33)
--- NOTE | 2018-05-03 15:33 | PN ---
Progress Note - Progress Note Date of Service: 05/03/18 Note: Pt seen and examined. Doing well. Pain controlled with IV. Able to ambulate. Family at bedside. No SOB, CP. No numbess or tingling. Temp Pulse Resp BP Pulse Ox 97.8 F 78 18 142/74 100 05/03/18 11:22 05/03/18 11:22 05/03/18 14:44 05/03/18 11:22 05/03/18 11:22 NAD. sitting in bed. right knee with dressing and cryocuff in place. SILT grossly distally. brisk cap refill. calf soft, nontender. ROM 2-120 degrees Laboratory Results - last 24 hr 05/02/18 05/02/18 05/02/18 15:23 15:23 15:23 WBC 5.4 RBC 4.42 Hgb 12.8 L Hct 37 L MCV 84 MCH 29 MCHC 34 RDW 15 Plt Count 234 MPV 7.2 L Neut % (Auto) 63.4 Lymph % (Auto) 21.9 L [place] % (Auto) 8.0 H Eos % (Auto) 5.6 Baso % (Auto) 1.1 Absolute Neuts (auto) 3.4 Absolute Lymphs (auto) 1.2 Absolute Monos (auto) 0.4 Absolute Eos (auto) 0.3 Absolute Basos (auto) 0.1 Absolute Nucleated RBC 0 Nucleated RBC % 0 ESR 45 H Sodium 136 Potassium 4.3 Chloride 102 Carbon Dioxide 24 Anion Gap 10 BUN 19 Creatinine 0.93 Est GFR ( Amer) 104.5 Est GFR (Non-Af Amer) 86.4 BUN/Creatinine Ratio 20.4 H Glucose 92 Lactic Acid 1.7 Uric Acid 4.6 Calcium 9.1 Magnesium Total Bilirubin 0.50 AST 26 ALT 39 Alkaline Phosphatase 79 C-Reactive Protein 78.16 H Total Protein 6.9 Albumin 4.0 Globulin 2.9 Albumin/Globulin Ratio 1.4 Procalcitonin Urine Color Urine Appearance Urine pH Ur Specific [place] Urine Protein Urine Ketones Urine Blood Urine Nitrate Urine Bilirubin Urine Urobilinogen Ur Leukocyte Esterase Urine WBC (Auto) Urine RBC (Auto) Urine Bacteria Urine Glucose Fluid Source Fluid Volume Fluid Color Fluid Appearance Fluid WBC Fluid RBC Fluid Tot Cell Count Fluid Neutrophils Fluid Lymphocytes Fluid Monocytes Fluid Crystals 05/02/18 05/02/18 05/02/18 15:23 19:00 19:53 WBC RBC Hgb Hct MCV MCH MCHC RDW Plt Count MPV Neut % (Auto) Lymph % (Auto) [place] % (Auto) Eos % (Auto) Baso % (Auto) Absolute Neuts (auto) Absolute Lymphs (auto) Absolute Monos (auto) Absolute Eos (auto) Absolute Basos (auto) Absolute Nucleated RBC Nucleated RBC % ESR Sodium Potassium Chloride Carbon Dioxide Anion Gap BUN Creatinine Est GFR ( Amer) Est GFR (Non-Af Amer) BUN/Creatinine Ratio Glucose Lactic Acid Uric Acid Calcium Magnesium Total Bilirubin AST ALT Alkaline Phosphatase C-Reactive Protein Total Protein Albumin Globulin Albumin/Globulin Ratio Procalcitonin 0.1 Urine Color Straw Urine Appearance Clear Urine pH 5.0 Ur Specific [place] 1.008 L Urine Protein Negative Urine Ketones Negative Urine Blood 1+ A Urine Nitrate Negative Urine Bilirubin Negative Urine Urobilinogen Negative Ur Leukocyte Esterase Negative Urine WBC (Auto) Absent Urine RBC (Auto) Absent Urine Bacteria Absent Urine Glucose Negative Fluid Source Synovial fluid Fluid Volume 3 Fluid Color Red Fluid Appearance Bloody Fluid WBC 14006 Fluid RBC 38686 Fluid Tot Cell Count 100 Fluid Neutrophils 87 Fluid Lymphocytes 5 Fluid Monocytes 8 Fluid Crystals 05/02/18 05/03/18 05/03/18 22:06 05:22 05:22 WBC 6.4 RBC 4.23 Hgb 12.3 L Hct 36 L MCV 84 MCH 29 MCHC 34 RDW 15 Plt Count 214 MPV 7.2 L Neut % (Auto) 70.2 Lymph % (Auto) 18.7 L [place] % (Auto) 6.2 Eos % (Auto) 4.2 Baso % (Auto) 0.7 Absolute Neuts (auto) 4.5 Absolute Lymphs (auto) 1.2 Absolute Monos (auto) 0.4 Absolute Eos (auto) 0.3 Absolute Basos (auto) 0 Absolute Nucleated RBC 0 Nucleated RBC % 0.1 ESR Sodium 138 Potassium 5.1 H Chloride 105 Carbon Dioxide 28 Anion Gap 5 BUN 20 Creatinine 1.07 Est GFR ( Amer) 88.9 Est GFR (Non-Af Amer) 73.5 BUN/Creatinine Ratio 18.7 Glucose 121 H Lactic Acid Uric Acid Calcium 8.6 Magnesium 2.1 Total Bilirubin AST ALT Alkaline Phosphatase C-Reactive Protein Total Protein Albumin Globulin Albumin/Globulin Ratio Procalcitonin Urine Color Urine Appearance Urine pH Ur Specific [place] Urine Protein Urine Ketones Urine Blood Urine Nitrate Urine Bilirubin Urine Urobilinogen Ur Leukocyte Esterase Urine WBC (Auto) Urine RBC (Auto) Urine Bacteria Urine Glucose Fluid Source Fluid Volume Fluid Color Fluid Appearance Fluid WBC Fluid RBC Fluid Tot Cell Count Fluid Neutrophils Fluid Lymphocytes Fluid Monocytes Fluid Crystals None seen 05/03/18 05:22 WBC RBC Hgb Hct MCV MCH MCHC RDW Plt Count MPV Neut % (Auto) Lymph % (Auto) [place] % (Auto) Eos % (Auto) Baso % (Auto) Absolute Neuts (auto) Absolute Lymphs (auto) Absolute Monos (auto) Absolute Eos (auto) Absolute Basos (auto) Absolute Nucleated RBC Nucleated RBC % ESR Sodium Potassium Chloride Carbon Dioxide Anion Gap BUN Creatinine Est GFR ( Amer) Est GFR (Non-Af Amer) BUN/Creatinine Ratio Glucose Lactic Acid Uric Acid Calcium Magnesium Total Bilirubin AST ALT Alkaline Phosphatase C-Reactive Protein Total Protein Albumin Globulin Albumin/Globulin Ratio Procalcitonin < 0.1 Urine Color Urine Appearance Urine pH Ur Specific [place] Urine Protein Urine Ketones Urine Blood Urine Nitrate Urine Bilirubin Urine Urobilinogen Ur Leukocyte Esterase Urine WBC (Auto) Urine RBC (Auto) Urine Bacteria Urine Glucose Fluid Source Fluid Volume Fluid Color Fluid Appearance Fluid WBC Fluid RBC Fluid Tot Cell Count Fluid Neutrophils Fluid Lymphocytes Fluid Monocytes Fluid Crystals Microbiology 05/02/18 15:23 Aerobic Blood Culture - Preliminary Blood Venous No Growth Day 1 Anaerobic Blood Culture - Preliminary No Growth Day 1 05/03/18 00:00 Gram Stain - Final Knee Right 05/02/18 19:53 Gram Stain - Final Joint Fluid(Synovial) - Knee Right Skin and Soft Tissue MRSA/MSSA (PCR - Final Mrsa Positive S.aureus Positive A/P POD 0 from R knee I and D for MSSA and MRSA joint infection WBAT ROM as shruthi ice/elevate. IV abx. appreciate consult. will reevaluate on Friday and if needed Friday possible second washout if symptoms worsen. ID consulted. PICC line ordered. analgesia- transition to oral
[2018-05-03] MEDS: oxyCODONE/Acetamin 5/325 MG* TAB PO PRN (21:55)
[2018-05-04] MEDS: Heparin VIAL(*) 5000 UNITS/ML VIAL (FIVE THOUSAND) SUBCUT SCH ×2 (06:00→14:43)
[2018-05-04] MEDS ORDERED: Vancomycin Trough Check NOTE FOLLOW UP ONE (07:30)
[2018-05-04] MEDS: Vancomycin(*) 1,000 MG in NS 0.9% 250 ML* 250 ML IVPB SCH (07:45)
[2018-05-04] MEDS: oxyCODONE/Acetamin 5/325 MG* TAB PO PRN (07:46)
[2018-05-04 07:52] LABS: EGFR Non-African American 77.6 (>60)
[2018-05-04 08:14] LABS: Vancomycin Trough 11.6 mcg/mL
[2018-05-04] MEDS: Losartan TAB* 25 MG PO SCH (09:09)
[2018-05-04] MEDS: Venlafaxine EXT RELEASE CAP* 75 MG PO SCH (09:09)
[2018-05-04] MEDS: Folic Acid TAB* 1 MG PO SCH (09:09)
[2018-05-04] MEDS: amLODIPine TAB* 5 MG PO SCH (09:09)
--- NOTE | 2018-05-04 13:25 | CONS ---
CONSULTATION REPORT: DATE OF CONSULT: 05/04/18 REQUESTING PHYSICIAN: Dr. Asencio. CONSULTING SERVICE: Infectious Disease. REASON FOR CONSULT: Septic arthritis, right knee. IMPRESSION: 1. Methicillin-resistant Staphylococcus aureus septic arthritis, right knee, status post arthroscopic incision, debridement, ambulating almost pain free. 2. Psoriatic arthritis, on [place]. RECOMMENDATIONS: Vancomycin goal trough 15 to 20 for 4 weeks with weekly CBC, CMP, CRP, and vancomycin trough. We discussed side effects including fever, rash, or diarrhea. He will notify me of any and follow up with me in 1 to 2 weeks. HISTORY OF PRESENT ILLNESS: A 47-year-old male with psoriatic arthritis admitted with right knee pain and swelling that came on fairly suddenly along with fevers, chills, and malaise. Because of worsening pain, he came to the hospital on 05/02/18, the knee was aspirated for 10,000 white cells, 90,000 red cells. The aspirate fluid was PCR positive for MRSA. The culture from that specimen is pending. Operative cultures on 05/03/18 are negative of 1 day. Today, his pain is much better, he has been walking around with significant improvement. He does not have other joints bothering and thus does not feel like his usual psoriatic arthritis or anything he has experienced before. PAST MEDICAL HISTORY: 1. Psoriatic arthritis. 2. Psoriasis. 3. Hypertension. 4. Gastroesophageal reflux disease. 5. Raynaud's phenomenon. 6. Migraines. 7. Anxiety. 8. History of MCL, meniscal, and ACL tears. 9. Insomnia. 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 11. Status post total shoulder arthroplasty. 12. Status post appendectomy. MEDICATIONS: 1. Amlodipine. 2. Folic acid. 3. Heparin subcutaneous injection. 4. Dilaudid as needed. 5. Losartan. 6. Vancomycin 1 g every 8 hours. 7. Effexor. ALLERGIES: ASPIRIN, TYLENOL and SULFA. FAMILY HISTORY: Mother is alive and healthy. Father from suicide. SOCIAL HISTORY: He lives in [place]. There is no travel or sick contacts. He is in a [employer] company. REVIEW OF SYSTEMS: A 14-point review of systems was negative except as noted above in history of present illness. PHYSICAL EXAM: Vital Signs: Temperature is 37, heart rate 57, respiratory rate 18, blood pressure 137/88, oxygen saturation 97% on room air. In general, he is awake, not in distress. Neurologic: He is oriented x3. Follows all commands. He moves all of his extremities. HEENT: There is no thrush. Neck is supple without mass. Lymph Nodes: There is no cervical, supraclavicular, inguinal, axillary, or epitrochlear lymphadenopathy. Heart has regular rate and rhythm without murmurs, rubs, or gallops. Lungs are clear to auscultation bilaterally. Abdomen: Soft, nontender, nondistended. There are bowel sounds present. Skin: There is no rash or splinter hemorrhage. Musculoskeletal: There is no spine tenderness to palpation. In the right knee, there is mild edema, no tenderness port incisions intact. LABORATORY DATA: White blood cell count 6, hemoglobin 12, platelets 214. Creatinine 1. Procalcitonin 0. Please see impressions and recommendations as outlined above. Thanks for asking me to see Mr. Lorenzana in consultation. [id number]/[facility] #: [id number] MTDD
--- NOTE | 2018-05-04 14:25 | PN ---
Progress Note - Progress Note Date of Service: 05/04/18 SOAP: Subjective: [Pt seen resting comfortably in bed. He states that he is a little angry as he has not gone home today and has still not received his PICC line today. He denies any f/c/ns, no n/v/d/c. He states he is feeling better than yesterday. ] Objective: [General: Pt is alert and oriented x3. NAD. MSK: R Knee: Dressing was wet from cryotherapy unit. Dressing was changed. incisions are clean, dry and intact with no drainage present. There is a mild effusion about the knee. He has painless ROM. Calves are soft and non tender. sensation is intact to light touch. 2+ DP pulse. ] Vital Signs Temp 98.0 F 05/04/18 11:29 Pulse 58 05/04/18 11:29 Resp 16 05/04/18 11:29 BP 138/75 05/04/18 11:29 Pulse Ox 100 05/04/18 11:29 Intake & Output 05/03/18 05/04/18 05/04/18 18:59 06:59 18:59 Intake Total 1377.8 1760 495 Output Total 0 1625 Balance 1377.8 135 495 Intake: IV Fluids 387.8 310 20 ABX - CEFTRIAXONE 108 ABX - VANCOMYCIN 230 270 NS (0.9%) 49.8 40 20 IVPB 490 250 ABX - VANCOMYCIN 260 250 Oral 500 1450 225 Output: Urine 0 1625 Other: Estimated Void Medium Medium Date of Last Bowel 05/02/2018 Movement # Voids 2 8 Assessment: POD 0 from R knee I and D for MSSA and MRSA joint infection Plan: WBAT ROM as shruthi ice/elevate. IV abx per Dr. Jacques possible second washout if symptoms worsen. PICC line ordered. analgesia- transition to oral Follow up with Dr. Nolasco on
[2018-05-04] MEDS ORDERED: Vancomycin 1500 MG IV - x ONCE IVPB ONE ×2 (16:00)
[2018-05-04 16:32] VITALS: BP 137/78
--- NOTE | 2018-05-04 17:32 | PN ---
Progress Note - Progress Note Date of Service: 05/04/18 Note: Pt seen and examined. Doing well. awaiting transfusion of vanco and will go home. Min pain. Doing well. WB. Temp Pulse Resp BP Pulse Ox 97.7 F 65 16 137/78 98 05/04/18 15:30 05/04/18 15:30 05/04/18 15:30 05/04/18 15:30 05/04/18 15:30 NAD. RLE: dressing in place. able to flex and ext without pain. SILT grossly. calf soft. Laboratory Results - last 24 hr 05/02/18 05/04/18 19:53 07:16 BUN 17 Creatinine 1.02 Est GFR ( Amer) 93.9 Est GFR (Non-Af Amer) 77.6 Fluid Cell Count Rvw By Vancomycin Trough 11.6 Microbiology 05/02/18 16:06 Blood Venous Aerobic Blood Culture - Preliminary No Growth Day 2 05/02/18 16:06 Blood Venous Anaerobic Blood Culture - Preliminary No Growth Day 2 05/02/18 15:23 Blood Venous Aerobic Blood Culture - Preliminary No Growth Day 2 05/02/18 15:23 Blood Venous Anaerobic Blood Culture - Preliminary No Growth Day 2 05/02/18 19:53 Joint Fluid(Synovial) - Knee Right Gram Stain - Final 05/02/18 19:53 Joint Fluid(Synovial) - Knee Right Body Fluid Culture - Preliminary Staphylococcus Aureus 05/02/18 19:53 Joint Fluid(Synovial) - Knee Right Skin and Soft Tissue MRSA/ MSSA (PCR - Final Mrsa Positive S.aureus Positive 05/03/18 00:00 Knee Right Gram Stain - Final 05/03/18 00:00 Knee Right Wound Culture - Preliminary No Growth Day 1 05/03/18 00:00 Body Fluid - Knee Right Anaerobic Culture - Preliminary No Growth Day 1 A/P POD#1.5 from R knee I and D Doing well WBAT IV abx f/u d/c today
[2018-05-05] MEDS ORDERED: Vancomycin(*) 1,250 MG in NS 0.9% 250 ML* 250 ML IVPB SCH ×2
--- NOTE | 2018-05-05 03:40 | OP ---
DATE OF OPERATION: Night of 05/02/18 into 05/03/18 - ROOM #348 DATE OF : 66 SURGEON: Maxx Nolasco MD M[employer] ANALYSIS WE[employer] LOGGING CAPTAIN: None available. PRE-OP DIAGNOSIS: Right knee septic arthritis. POST-OP DIAGNOSES: Right knee septic arthritis with medial and lateral meniscal tears. OPERATIVE PROCEDURE: Right knee arthroscopy with I and D, lavage, and partial medial and lateral meniscectomy. INDICATIONS: Michael Lorenzana is a 47-year-old male with a history of psoriatic arthritis, on some immunosuppressive medications. He has had several days' history of knee pain and swelling. He was concerned for possible cellulitis and he was responding to the antibiotics; however, he returned to the ER with a swollen knee. He had some discomfort and mildly elevated inflammatory markers. After extensive discussion of the risks and benefits, he underwent an aspiration of his knee under ultrasound guidance, which demonstrated gram- positive cocci, MRSA, and MSSA. He underwent spinal anesthesia. The choice to proceed with spinal anesthesia was because the patient had a large meal approximately 3 hours prior to surgery and it was discussed between two anesthesiologists whether spinal was safe given the patient is having local septic joint with some surrounding cellulitis. Because he did not have cellulitis to the area of the back, it was determined that it was safe to do a spinal anesthesia. This was again determined between two anesthesiologists. Risks and benefits of surgery were discussed at length to include, but not limited to, bleeding; infection; damage to nerves, vessels, surrounding structures; wound nonhealing; persistent pain; need for further surgery; scarring; stiffness; incomplete relief of symptoms; risk of anesthesia; need for total joint later on; persistent infection; risk of osteomyelitis. COMPLICATIONS: None. ESTIMATED BLOOD LOSS: Minimal. DESCRIPTION OF PROCEDURE: The patient was greeted in the preoperative area by the attending surgeon. Correct extremity was marked and consent was confirmed. He was then brought back to the operating room suite where he was placed in the supine position on the operating room table. He then underwent spinal anesthesia, after which he was appropriately positioned in the bed. The right leg was prepped and draped in the usual sterile fashion beginning with chlorhexidine soap, scrub, and alcohol wipe, and a final prep with ChloraPrep. After appropriate surgical pause indicating site, side, procedure, consent was confirmed, the anterolateral portal was made using an 11-blade. The scope was introduced into the joint and the joint was examined. There were abundant synovitic changes. There was no obvious ezequiel pus, but there was blood. Sample was attempted to be sent, but the sample was dropped. The second sample was obtained, which had some fluid lavage in it and was sent to the lab for culture of Gram stain. Knee was then lavaged. There was abundant synovitis, particularly anteriorly. It was hard to navigate into the suprapatellar pouch. Therefore, the anteromedial portal was made with an 18-gauge needle for localization. The shaver was then used to debride back the abundant synovitis; it was anteromedially and laterally based. This allowed mobilization of the kneecap and the scope entered to the suprapatellar pouch. At this point, the diagnostic arthroscopy was done. The patella had grade 0 changes. The trochlea had a small ridge of grade 2 changes with some areas of grade 3 changes. The medial and lateral gutters were intact without any loose debris, but there was an abundant synovitis. The soft tissue had to be removed to allow visualization at the ACL and PCL. ACL had evidence of a previous reconstruction done in a transtibial fashion. The graft appeared to be intact, but loose. The medial compartment was examined. There were some areas of grade 2 changes of the medial femoral condyle. The medial plateau had grade 0 to 1 changes. The medial meniscus had an unstable flap that was present and flapping into the joint. Decision was made to debride this. Once the biters and marie were used to debride back the meniscus, attention was directed to the lateral compartment. Lateral compartment had grade 1 changes, the meniscus was intact, except at the root, there was partial thickness tearing. Decision was made to debride this back to a stable layer. The remainder of the meniscus appropriately looked intact. The meniscus was gently probed. The knee was thoroughly lavaged with 12 L of sterile saline solution. The final images were obtained. The wounds were copiously irrigated with sterile saline. The portals were closed with 3-0 nylon in interrupted fashion. Sterile dressings were applied. A Cryo/Cuff was applied. He was awoken from anesthesia and transferred to PACU in stable condition. POSTOPERATIVE PLAN: He will be weightbearing as tolerated, range of motion as tolerated. He will be admitted for IV antibiotics. ID will be consulted. DVT prophylaxis will be heparin while he is in-house. We will continue to follow the cultures. [id number]/[facility] #: [id number] [facility] HOSPITALJamari
[2018-05-05] MEDS ORDERED: Vancomycin Trough Check NOTE FOLLOW UP ONE (16:00)
[2018-05-06 10:01] LABS: Lyme Disease Source RIGHT KNEE ASPIR
== END 2018-05-04 19:00 | disposition home or self-care (01) | DRG 313 ==
LOC: ED 14:49 → MED 19:01 → SSU 05-03 01:01 → OBSVTOIN 05-03 10:03
PROVIDERS: ADMIT Student in an Organized Health Care Education/Training Program; ATTEND Internal Medicine
PROC: 0S9C4ZZ Drainage of Right Knee Joint, Percutaneous Endoscopic Approach (ICD-10-PCS; 2018-05-02)
PROC: 0SBC4ZZ Excision of Right Knee Joint, Percutaneous Endoscopic Approach (ICD-10-PCS; principal; 2018-05-02 23:00)
PROC: 0S9C3ZX Drainage of Right Knee Joint, Percutaneous Approach, Diagnostic (ICD-10-PCS; 2018-05-04)
PROC: 05H533Z Insertion of Infusion Device into Right Subclavian Vein, Percutaneous Approach (ICD-10-PCS; 2018-05-04)
DX: M00.061 Staphylococcal arthritis, right knee (principal); D84.9 Immunodeficiency, unspecified; B95.62 Methicillin resistant Staphylococcus aureus infection as the cause of diseases classified elsewhere; I10 Essential (primary) hypertension; L40.50 Arthropathic psoriasis, unspecified; L40.9 Psoriasis, unspecified; K21.9 Gastro-esophageal reflux disease without esophagitis; I73.00 Raynaud's syndrome without gangrene; G43.909 Migraine, unspecified, not intractable, without status migrainosus; F41.9 Anxiety disorder, unspecified; G47.00 Insomnia, unspecified; Z96.619 Presence of unspecified artificial shoulder joint; Z88.6 Allergy status to analgesic agent; Z88.2 Allergy status to sulfonamides; Z82.49 Family history of ischemic heart disease and other diseases of the circulatory system; F17.220 Nicotine dependence, chewing tobacco, uncomplicated; Z79.899 Other long term (current) drug therapy; Z80.0 Family history of malignant neoplasm of digestive organs
CPT/HCPCS: 36415; 80048; 80053; 80202; 81003; 81015; 82565; 83605; 83735; 84145; 84520; 84550; 85025; 85652; 86140; 87040; 87070; 87073; 87077; 87186; 87205; 87476; 87640; 87641; 87798; 89051; 89060; 99284; A9270-GY; C1751; J0690; J0696; J1170; J1644; J2250; J2400; J2765; J3010; J3370; J3490

== ENCOUNTER 2019-11-30 06:28 | Day surgery (SDC) | payer BC ==
[~2019-11-30 06:28] MED LIST: Buffered Lidocaine 1% SYRIN* 1 ML/SYRINGE INTRADERM ONE; Lactated Ringers 1000 ML Bag* 1,000 ML IV SCH
[2019-11-30] MEDS ORDERED: ceFAZolin 2 GM in NS PREMIX(*) 2 GM/100 ML BAG IVPB ONE (07:02)
[2019-11-30] MEDS ORDERED: Buffered Lidocaine 1% SYRIN* 1 ML/SYRINGE INTRADERM ONE (07:02)
[2019-11-30] MEDS ORDERED: Lidocaine 1% w EPI 1:100,000* MDV 20 ML VIAL ONE (08:19)
[2019-11-30] MEDS ORDERED: Bupivacaine 0.25% SDV* 30 ML ONE (08:19)
[2019-11-30] MEDS ORDERED: Methylene Blue 0.5 %* 50 MG/10 ML AMP IV ONE (08:19)
[2019-11-30] MEDS ORDERED: Midazolam* 1 MG/ML 5 ML VIAL (5 MG) ONE ×2 (08:26→08:49)
[2019-11-30] MEDS ORDERED: Bupivacaine 0.25% SDV PF* 10 ML VIAL INJ ONE (08:32)
[2019-11-30] MEDS ORDERED: fentaNYL* 50 MCG/ML 2 ML VIAL (100 MCG VIAL) ONE (08:37)
[2019-11-30] MEDS ORDERED: Dexamethasone IV* 4 MG/ML 1 ML (4 MG) ONE (08:48)
[2019-11-30] MEDS ORDERED: Ondansetron INJ* 2 MG/ML VIAL IV PRN (09:27)
[2019-11-30] MEDS ORDERED: Naloxone* 0.4 MG/ML 1 ML VIAL IV PRN (09:27)
[2019-11-30] MEDS ORDERED: oxyCODONE TAB* 5 MG TAB PO PRN (09:27)
[2019-11-30] MEDS ORDERED: fentaNYL* 50 MCG/ML 2 ML VIAL (100 MCG VIAL) IV PRN (09:27)
[2019-11-30 10:57] VITALS: BP 149/100
== END 2019-11-30 10:40 | disposition home or self-care (01) ==
LOC: OR 06:28
PROVIDERS: ATTEND Plastic Surgery
DX: L92.8 Other granulomatous disorders of the skin and subcutaneous tissue (principal); I10 Essential (primary) hypertension; L40.50 Arthropathic psoriasis, unspecified; F41.8 Other specified anxiety disorders
CPT/HCPCS: 88305; 88312; J0690; J1100; J2250; J3010; J3490

== ENCOUNTER 2020-11-14 08:58 | Observation (INO) ==
[~2020-11-14 08:58] MED LIST changes: +Buffered Lidocaine 1% SYRIN 1 ml INTRADERM ONE; -Buffered Lidocaine 1% SYRIN* 1 ML/SYRINGE INTRADERM ONE; -Lactated Ringers 1000 ML Bag* 1,000 ML IV SCH; +Lactated Ringers 1000 ml BAG 1,000 ML IV SCH
[2020-11-14] MEDS ORDERED: ceFAZolin 2 GM PREMIX 2 GM/50 ML BAG ONE (09:17)
[2020-11-14] MEDS ORDERED: Midazolam 5 mg/5 ml VIAL 1 mg/ml 5 ml VIAL (5 mg) ONE ×2 (10:34→12:04)
[2020-11-14] MEDS ORDERED: ROPIVACAINE 5 MG/ML 30 ML BTL (0.5%) ONE (10:34)
[2020-11-14] MEDS ORDERED: Dexamethasone IV 4 MG/ML VIAL 1 ml VIAL ONE (10:34)
[2020-11-14] MEDS ORDERED: fentaNYL 100 mcg/2 ml 50 MCG/ML VIAL ONE (11:05)
[2020-11-14] MEDS ORDERED: Propofol 10 MG/ML 20 ML BTL ONE ×3 (13:48→14:27)
[2020-11-14] MEDS ORDERED: Ondansetron 4 mg VIAL 2 MG/ML 2 ml VIAL ONE (13:48)
[2020-11-14] MEDS ORDERED: Morphine 2 MG/ML SYRINGE IV PRN (13:52)
[2020-11-14] MEDS ORDERED: diPHENhydraMINE 25 mg TAB PO PRN (13:52)
[2020-11-14] MEDS ORDERED: Magnesium Hydroxide LIQ 30 ML UDC PO PRN (13:52)
[2020-11-14] MEDS ORDERED: Ondansetron 4 mg VIAL 2 MG/ML 2 ml VIAL IV PRN (13:52)
[2020-11-14] MEDS ORDERED: Lactulose 30 ml UDC PO PRN (13:52)
[2020-11-14] MEDS ORDERED: diPHENhydraMINE IV 50 MG/ML 1 ml VIAL (BENADRYL) IV PRN (13:52)
[2020-11-14] MEDS ORDERED: Ondansetron ODT 4 mg TAB 4 MG TAB PO PRN (13:52)
[2020-11-14] MEDS ORDERED: Naloxone 0.4 mg VIAL 0.4 mg/ml 1 ml VIAL IV PRN (15:49)
[2020-11-14] MEDS ORDERED: HYDROmorphone 1 MG/1 ML SYRINGE ONE (15:50)
[2020-11-14] MEDS: HYDROmorphone 1 MG/1 ML SYRINGE IV PRN ×2 (15:51→16:10)
[2020-11-14] MEDS: Lactated Ringers 1000 ml BAG 1,000 ML IV SCH (16:56)
[2020-11-14] MEDS: ceFAZolin 1 GM ADVAN 1 GM in NS 0.9% 50 ML 50 ML IVPB SCH (20:00)
[2020-11-14] MEDS: Magnesium Hydroxide LIQ 30 ML UDC PO SCH (21:09)
[2020-11-15] MEDS: Lactated Ringers 1000 ml BAG 1,000 ML IV SCH (01:58)
[2020-11-15] MEDS: ceFAZolin 1 GM ADVAN 1 GM in NS 0.9% 50 ML 50 ML IVPB SCH ×2 (03:47→11:37)
[2020-11-15 05:51] LABS: Hematocrit 31 % (42-52); Hemoglobin 10.6 g/dL (14.0-18.0); Mean Platelet Volume 7.6 fL (7.4-10.4); Platelet Count 191 10^3/uL (150-450)
[2020-11-15 06:06] LABS: Calcium 8.2 mg/dL (8.6-10.3); EGFR African American 101.1 (>60); EGFR Non-African American 83.6 (>60); Potassium 4.1 mmol/L (3.5-5.0)
[2020-11-15] MEDS: Magnesium Hydroxide LIQ 30 ML UDC PO SCH (07:38)
[2020-11-15] MEDS ORDERED: Vitamin THERAPEUTIC TAB PO SCH (09:00)
[2020-11-15] MEDS ORDERED: LOSARTAN HYDROCHLOROTHIAZIDE PO SCH (09:00)
[2020-11-15] MEDS ORDERED: Venlafaxine XR 75 mg PO SCH (09:00)
[2020-11-15 11:40] VITALS: BP 113/67
== END 2020-11-15 14:34 | disposition home or self-care (01) ==
LOC: OR 08:58 → SSU 08:58 → EDSTATUS 11:30
PROVIDERS: ADMIT Orthopaedic Surgery Adult Reconstructive Orthopaedic Surgery; ATTEND Orthopaedic Surgery Adult Reconstructive Orthopaedic Surgery

== ENCOUNTER 2021-04-26 09:26 | Observation (INO) ==
[2021-04-26] MEDS ORDERED: ceFAZolin 2 GM in NS PREMIX 2 GM/100 ML BAG IVPB ONE (09:40)
[2021-04-26] MEDS ORDERED: Buffered Lidocaine 1% SYRIN 1 ml INTRADERM ONE (10:05)
[2021-04-26] MEDS ORDERED: fentaNYL 100 mcg/2 ml 50 MCG/ML VIAL ONE ×2 (10:54→14:54)
[2021-04-26] MEDS ORDERED: Lidocaine 2% PF 5 ML VIAL ONE (10:54)
[2021-04-26] MEDS ORDERED: Ondansetron 4 mg VIAL 2 MG/ML 2 ml VIAL ONE (10:54)
[2021-04-26] MEDS ORDERED: Midazolam 2 mg/2 ml VIAL 1 mg/ml 2 ml VIAL (2 mg) ONE (10:54)
[2021-04-26] MEDS ORDERED: Dexamethasone IV 4 MG/ML VIAL 1 ml VIAL ONE (10:54)
[2021-04-26] MEDS ORDERED: Midazolam 5 mg/5 ml VIAL 1 mg/ml 5 ml VIAL (5 mg) ONE (10:55)
[2021-04-26] MEDS ORDERED: Propofol 10 mg/ml 100 ML BTL 100 ML ONE (11:02)
[2021-04-26] MEDS ORDERED: Acetaminophen IV 1 GM/100ML 100 ML IV ONE (11:02)
[2021-04-26] MEDS ORDERED: Propofol 10 MG/ML 20 ML BTL ONE ×2 (13:25)
[2021-04-26] MEDS ORDERED: DiMENhydriNATE IV 50 mg/ml 1 ml VIAL IV PUSH PRN (13:46)
[2021-04-26] MEDS ORDERED: diPHENhydraMINE IV 50 MG/ML 1 ml VIAL (BENADRYL) IV PRN ×2 (13:46→13:52)
[2021-04-26] MEDS ORDERED: Naloxone 0.4 mg VIAL 0.4 mg/ml 1 ml VIAL IV PRN (13:46)
[2021-04-26] MEDS ORDERED: Magnesium Hydroxide LIQ 30 ML UDC PO PRN (13:52)
[2021-04-26] MEDS ORDERED: Lactulose 30 ml UDC PO PRN (13:52)
[2021-04-26] MEDS ORDERED: Ondansetron 4 mg VIAL 2 MG/ML 2 ml VIAL IV PRN (13:52)
[2021-04-26] MEDS ORDERED: Ondansetron ODT 4 mg TAB 4 MG TAB PO PRN (13:52)
[2021-04-26] MEDS ORDERED: diPHENhydraMINE 25 mg TAB PO PRN (13:52)
[2021-04-26] MEDS ORDERED: HYDROmorphone 1 MG/1 ML SYRINGE ONE (13:54)
[2021-04-26] MEDS: HYDROmorphone 1 MG/1 ML SYRINGE IV PRN ×5 (13:55→14:46)
[2021-04-26] MEDS: fentaNYL 100 mcg/2 ml 50 MCG/ML VIAL IV PRN ×3 (14:54→15:13)
[2021-04-26] MEDS: Lactated Ringers 1000 ml BAG 1,000 ML IV SCH (15:52)
[2021-04-26] MEDS: Morphine 2 MG/ML SYRINGE IV PRN ×2 (16:52→20:46)
[2021-04-26] MEDS: ceFAZolin 1 GM ADVAN 1 GM in NS 0.9% 50 ML 50 ML IVPB SCH (20:46)
[2021-04-26] MEDS: Magnesium Hydroxide LIQ 30 ML UDC PO SCH (20:47)
[2021-04-27] MEDS: ceFAZolin 1 GM ADVAN 1 GM in NS 0.9% 50 ML 50 ML IVPB SCH ×2 (03:51→11:15)
[2021-04-27] MEDS: Lactated Ringers 1000 ml BAG 1,000 ML IV SCH (03:52)
[2021-04-27 06:19] LABS: Hematocrit 34 % (42-52); Hemoglobin 11.9 g/dL (14.0-18.0); Mean Platelet Volume 7.5 fL (7.4-10.4); Platelet Count 225 10^3/uL (150-450)
[2021-04-27 06:41] LABS: Calcium 8.6 mg/dL (8.6-10.3); EGFR African American 88.8 (>60); EGFR Non-African American 73.4 (>60)
[2021-04-27] MEDS: Magnesium Hydroxide LIQ 30 ML UDC PO SCH (07:59)
[2021-04-27] MEDS ORDERED: Vitamin THERAPEUTIC TAB PO SCH (09:00)
[2021-04-27] MEDS ORDERED: Venlafaxine XR 75 mg PO SCH (09:00)
[2021-04-27 11:41] VITALS: BP 115/68
== END 2021-04-27 13:30 | disposition home or self-care (01) ==
LOC: AA 09:26 → INTOOBSV 09:26 → SSU 13:52
PROVIDERS: ADMIT Orthopaedic Surgery Adult Reconstructive Orthopaedic Surgery; ATTEND Orthopaedic Surgery Adult Reconstructive Orthopaedic Surgery